=== PATIENT | female | born 1950 | race Caucasian/White ===

== ENCOUNTER → 2021-12-22 12:54 | Outpatient (CLI) | payer MEDICARE, SELFPAY ==
--- NOTE | ~2021-12-22 | MM_ITS ---
EXAMINATION: MM screening yuan BI w zeyad HISTORY: Screening mammogram TECHNIQUE: Craniocaudal and mediolateral oblique 3-D tomosynthesis images were obtained and synthetic 2-D images were generated. CAD analysis was submitted and interpreted. COMPARISON: No prior mammogram is available for comparison at this institution. BREAST PARENCHYMAL COMPOSITION: The breasts are almost entirely fatty. FINDINGS: Scattered bilateral benign calcifications. There is no evidence of suspicious mass, calcifi cation, or architectural distortion to suggest malignancy in either breast. IMPRESSION: 1. No mammographic evidence of malignancy. 2. Recommend routine screening mammography in one year. BI-RADS Category 2: Benign finding(s). Reviewed, dictated and finalized at location A.
--- NOTE | ~2021-12-22 | DEXA_ITS ---
Bone Density Report Name: ZACH MADSEN Age: 71 Sex: Female Ethnicity: White Date of : 1950 Indication: postmenopausal; screening for osteoporosis; height loss; prior fracture; Referring Provider: Leodan Marx Study: Bone densitometry was performed. Exam Date: December 22, 2021 Accession number: [id number] Bone Density: Region BMD T-score Z-score Classification AP Spine (L1-L4) 0.908 -1.3 0.9 Osteopenia Femoral Neck (Left) 0.609 -2.2 -0.3 Osteopenia Total Hip (Left) 0.829 -0.9 0.7 Normal Femoral Neck (Right) 0.611 -2.1 -0.2 Osteopenia Total Hip (Right) 0.794 -1.2 0.4 Osteopenia Total Hip Mean 0.812 -1.1 0.6 Osteopenia World Health Organization criteria for BMD impression classify patients as: Normal (T-score at or above -1.0), Osteopenia (T-score between -1.0 and -2.5), or Osteoporosis (T-score at or below -2.5). 10-year Fracture Risk(1): Major Osteoporotic Fracture 19% Hip Fracture 3.8% Reported Risk Factors: [place] (), Neck BMD=0.611, BMI=36.0, previous fracture (1) FRAX(R) Version 3.08. Fracture probability calculated for an untreated patient. Fracture probability may be lower if the patient has received treatment. Clinical Information Provided by Patient: Has had a low trauma fracture Has used the following medications: Vitamin D Patient maximum height was 68 Menopause Age: 65 No regular weight bearing exercise Does not regularly consume dairy products Drinks caffeinated beverages Onset of menses at age 12 Number of children 2 Impression: The patient has low bone mass, based on the Left Femoral Neck T-score. The patient has an estimated ten-year risk of hip fracture of 3.8% and an estimated ten-year risk of major fracture of 19%, based on the WHO FRAX algorithm. The patient has risk factors, including: previous fracture. Discussion: BONE DENSITY IS LOW AT ONE OR MORE SKELETAL SITES. THE PATIENT'S BMD AND CLINICAL RISK FACTORS CONTRIBUTE TO THIS PATIENT'S INCREASED RISK OF FRACTURE. This patient's lowest T-score is low at one or more skeletal sites. It meets the World Health Organization's (WHO) criteria for ?low bone mass? (T-score between -1.0 and -2.5). The patient's 10-year risk of hip fracture as calculated by FRAX exceeds the threshold where pharmacological therapy is recommended by the National Osteoporosis Foundation (NOF). However, all treatment decisions require clinical judgment and consideration of individual patient factors, including patient preferences, comorbidities, previous drug use, risk factors not captured in the FRAX model (e.g., frailty, falls, vitamin D deficiency, increased bone turnover, interval significant decline in bone density) and possible under or overestimation of fracture risk by FRAX. The patient should follow a healthful lifestyle (good
== END ==
PROVIDERS: PCP Internal Medicine; Visit Provider Obstetrics & Gynecology
DX: Z12.31 Encounter for screening mammogram for malignant neoplasm of breast (principal); Z78.0 Asymptomatic menopausal state; M85.88 Other specified disorders of bone density and structure, other site; M85.852 Other specified disorders of bone density and structure, left thigh; M85.851 Other specified disorders of bone density and structure, right thigh
CPT/HCPCS: 77063; 77067; 77080

== ENCOUNTER 2023-05-17 07:10 | Emergency (ER) | payer MEDICARE, SELFPAY ==
--- NOTE | ~2023-05-17 | CT_ITS ---
EXAMINATION: CT abdomen pelvis wo con DATE: 05/17/2023 10:33 INDICATION: Abdominal pain. Hematuria. TECHNIQUE: Computed tomography (CT) of the abdomen and pelvis was performed without intravenous contr ast. Automated exposure control and iterative reconstruction technique were employed. The dose-length product was 874.58 mGy-cm. COMPARISON: None. FINDINGS: The visualized portions of the lung bases demonstrate mild atelectasis. No pleural effusion . The heart size is normal. No pericardial effusion. The liver, gallbladder, spleen, pancreas, and ad renal glands are normal. There is mild right hydronephrosis. There is a 3 mm stone in proximal right ureter. There is a 2 mm stone in left kidney. There is mild aortic atherosclerosis. There is a left i nguinal hernia containing fat. There is diverticulosis of the colon without evidence of diverticuliti s. There are no dilated loops of bowel. The appendix is not visualized. There are no pathologically e nlarged lymph nodes. There is no free intraperitoneal fluid. There is moderate lumbar spondylosis. Th ere are bridging endplate osteophytes at multiple levels in the thoracic spine, consistent with diffu se idiopathic skeletal hyperostosis (DISH). IMPRESSION: 1. 3 mm stone in proximal right ureter with mild right hydronephrosis. 2. 2 mm nonobstructing left kidney stone. Reviewed, dictated and finalized at location A.
[2023-05-17 07:13] VITALS: BP 149/65; PULSE 56; RESP 18; TEMP 36.1; O2SAT 96
[2023-05-17 07:28] LABS: Basophils Percent Auto 0.1 % (0.2-1.2); Eosinophils Absolute Auto 0.3 K/mm3 (0-0.3); Hematocrit 44.2 % (37.0-47.0); Hemoglobin 14.2 g/dL (12.0-15.0); Immature Granulocyte Absolute 0.02 K/mm3 (0.00-0.031); Immature Granulocyte Percent A 0.2 % (0-0.5); Lymphocytes Absolute Auto 3.18 K/mm3 (0.9-3.2); Lymphocytes Percent Auto 38.2 % (18.3-44.2); Mean Corpuscular HGB Conc 32.1 g/dl (32-36); Mean Corpuscular Hemoglobin 31.1 pg (26-34); Mean Corpuscular Volume 96.9 fl (80-100); Monocytes Absolute Auto 0.8 K/mm3 (0.1-0.6); Monocytes Percent Auto 9.2 % (2.6-8.5); Neutrophils Absolute Auto 4.1 K/mm3 (1.3-6.7); Neutrophils Percent Auto 49.3 % (45.5-73.1); Platelet Count Result 339 k/mm3 (150-375); Red Blood Count 4.56 M/mm3 (4.2-5.4); Red Cell Distribution Width 12.3 % (11.5-14.5); White Blood Count 8.3 K/mm3 (4.5-10.0)
[2023-05-17 07:37] LABS: Alanine Aminotransferase 32 U/L (6-35); Albumin Level 4.2 g/dL (3.5-5.1); Alkaline Phosphatase 90 U/L (38-126); Anion Gap 8 mmol/L (8-16); Aspartate Amino Transferase 34 U/L (14-36); Bilirubin,Total 0.4 mg/dL (0.2-1.3); Blood Urea Nitrogen 17 mg/dL (7-17); Calcium 9.4 mg/dL (8.4-10.2); Carbon Dioxide 24 mmol/L (22-30); Chloride 106 mmol/L (98-107); Estimated CRCL calculation 79 ml/min; Estimated Glomerular Filt Rate > 60; Glucose 137 mg/dL (65-110); Lipase 96 U/L (23-300); Potassium 4.3 mmol/L (3.4-5.0); Sodium 138 mmol/L (137-145)
[2023-05-17 07:56] VITALS: BP 167/82; PULSE 60; RESP 16; TEMP 36.7; O2SAT 99
--- NOTE | 2023-05-17 08:06 | PC.NURSE ---
pt's son has walked into nursing station 2 times to report pt in pain and states my mom is in pain what are we waiting on. Informed pt ED is full and currently 1 ERP on staff. Son is agitated and states we came here because of her pain.
--- NOTE | 2023-05-17 08:12 | ED.ABDPAIN ---
HPI - Abdominal Pain General Chief Complaint: Abdominal Pain Stated Complaint: abd pain Time Seen by Provider: 05/17/23 08:06 History of Present Illness HPI narrative: 73-year-old female presented emergency department for evaluation of right flank and right lower quadrant pain that started approximately 530 this morning. Patient describes it as a sharp pain. Patient did have some associated nausea without vomiting. Patient denies any prior history of kidney stones. Related Data Allergies Allergy/AdvReac Type Severity Reaction Status Date / Time No Known Allergies Allergy Verified 05/17/23 08:03 Review of Systems Review of Systems: All systems reviewed & are unremarkable except as noted in HPI and below Exam Narrative: APPEARANCE: Well appearing, no pain, no distress, well-nourished. HEAD: normocephalic, atraumatic. EYES: PERRLA/EOMI, conjunctivae clear. NOSE: Normal no drainage EARS:TMS clear with good light reflex. THROAT: Pharynx clear, no exudate. NECK: Supple. No adenopathy, no masses. RESPIRATORY: Airway patent, respirations nonlabored. Clear to auscultation bilaterally, no rales, rhonchi, wheezing. CARDIOVASCULAR: Regular rate and rhythm without murmurs rubs or gallops. ABDOMINAL: Soft right lower quadrant tenderness and right CVA tenderness to palpation MUSCULOSKELETAL: Moves all extremities. Strength/ROM intact, No edema, No calf tenderness. NEURO: Alert. Cranial nerves II through XII intact. Grossly intact SKIN: Warm, dry. Normal Color Course Course Emergency Course: 73-year-old female presented ED for evaluation of right flank and right lower quadrant pain. Patient was in distress due to the pain upon arrival and was ordered medications for pain control, IV medications for nausea control and IV fluids. Patient is afebrile with no leukocytosis and a stable hemoglobin. Patient has kidney function at her baseline. UA did show evidence of hematuria and CT scan did show a 3 mm proximal right ureteral calculi. On reevaluation patient's pain is resolved. Patient was provided p.o. Flomax and p.o. [place], and p.o. Zofran for home. Patient and family were updated on the results of the work-up and plan for follow-up and on reasons to return to the emergency department. All questions concerns were addressed and patient was well-appearing at time of discharge. Vital Signs Vital signs: Vital Signs Temperature 97 F L 05/17/23 07:13 Pulse Rate 56 L 05/17/23 07:13 Respiratory Rate 18 05/17/23 07:13 Blood Pressure 149/65 H 05/17/23 07:13 Pulse Oximetry 96 05/17/23 07:13 Oxygen Delivery Room Air 05/17/23 07:13 Temperature 98.0 F 05/17/23 09:30 Pulse Rate 84 05/17/23 11:47 Respiratory Rate 16 05/17/23 11:47 Blood Pressure 131/62 05/17/23 11:47 Pulse Oximetry 97 05/17/23 11:47 Oxygen Delivery Room Air 05/17/23 07:13 MDM - Abdominal Pain Differential Diagnosis Differential diagnosis: Likely abdominal pain, acute appendicitis, calculus of kidney, constipation, diverticulitis, gastroenteritis, pancreatitis and small bowel obstruction Lab Data Attestation: I reviewed the patient's lab results. 05/17/23 07:22 05/17/23 07:22 Labs: Lab Results 05/17/23 05/17/23 Range/Units 07:22 09:11 WBC 8.3 (4.5-10.0) K/mm3 RBC 4.56 (4.2-5.4) M/mm3 Hgb 14.2 (12.0-15.0) g/dL Hct 44.2 (37.0-47.0) % MCV 96.9 (80-100) fl MCH 31.1 (26-34) pg MCHC 32.1 (32-36) g/dl RDW 12.3 (11.5-14.5) % Plt Count 339 (150-375) k/mm3 MPV 9.0 (7.4-10.4) fl Immature Gran % (Auto) 0.2 (0-0.5) % Neut % (Auto) 49.3 (45.5-73.1) % Lymph % (Auto) 38.2 (18.3-44.2) % [place] % (Auto) 9.2 H (2.6-8.5) % Eos % (Auto) 3.0 (0-4.4) % Baso % (Auto) 0.1 L (0.2-1.2) % Lymph # (Auto) 3.18 (0.9-3.2) K/mm3 [place] # (Auto) 0.8 H (0.1-0.6) K/mm3 Eos # (Auto) 0.3 (0-0.3) K/mm3 Baso # (Auto) 0.0 (0.0-0.1) K/mm3 Abs Immat Gr
[2023-05-17] MEDS: SODIUM CHLORIDE 0.9% IV 500 ML 999 ML IV CONT (08:16)
[2023-05-17] MEDS: ONDANSETRON INJ 4 MG/2 ML VIAL IV PUSH (08:17)
[2023-05-17] MEDS: HYDROmorphone HCL INJ (*CRX) 1 MG/ML SYR 0.5 MG IV PUSH (08:17)
[2023-05-17 08:30] VITALS: BP 136/71; PULSE 63; RESP 16; TEMP 36.7; O2SAT 98
[2023-05-17 09:30] VITALS: BP 130/64; PULSE 60; RESP 16; TEMP 36.7; O2SAT 96
[2023-05-17 09:43] LABS: Appearance Urine Clear (Clear); Bacteria Urine None Seen /hpf; Bilirubin Urine Negative (Negative); Blood Urine 3+ (Negative); Color Urine Yellow (Yellow); Glucose Urine UA Negative (Negative); Ketones Urine Negative (Negative); Leukocyte Esterase Ur 1+ LEU/UL (Negative); Need Manual Microscopic Reviewed; Nitrate Urine Negative (Negative); Protein Urine Trace mg/dL (Negative); RBC Urine >100 /hpf (0-2); Specific Grav Ur 1.017 (1.001-1.035); Squamous Epithelial Cell Urine Occasional /hpf (Few); Urobilinogen Urine 0.2 mg/dL (<2.0); pH Urine 7.5 (5.0-9.0)
[2023-05-17 09:47] LABS: Add Urine Microscopic? YES
[2023-05-17] MEDS: HYDROcodone/acetaminophen (*CRX) 5-325 MG TABLET 1 TAB PO (11:44)
[2023-05-17] MEDS: TAMSULOSIN HCL 0.4 MG CAPSULE PO (11:45)
[2023-05-17 11:47] VITALS: BP 131/62; PULSE 84; RESP 16; O2SAT 97
== END 2023-05-17 11:56 | disposition home or self-care (01) ==
PROVIDERS: Emergency Provider Emergency Medicine; PCP Internal Medicine
DX: N13.2 Hydronephrosis with renal and ureteral calculous obstruction (principal)
CPT/HCPCS: 36415; 74176; 80053; 81001; 83690; 85025; 87086; 96361; 96374; 96375; 99284; A9270; J1170; J2405; J7040

== ENCOUNTER 2023-05-25 15:44 | Outpatient (CLI) | payer MEDICARE, SELFPAY ==
--- NOTE | ~2023-05-25 | CT_ITS ---
EXAMINATION: CT abdomen pelvis wo con DATE: 05/25/2023 16:05 INDICATION: Left ureteral stone TECHNIQUE: Computed tomography (CT) of the abdomen and pelvis was performed without intravenous contr ast. Automated exposure control and iterative reconstruction technique were employed. Exam dose: 921 .79 mGy-cm total exam DLP. COMPARISON: 05/17/2023 CT abdomen pelvis FINDINGS: Minimal discoid atelectasis or scarring at the lung bases. No consolidation. No pericardial or pleural effusion. The liver, gallbladder, spleen, pancreas and bile ducts and pancreatic duct as well as the adrenal gl ands are unremarkable. Persistent 3 mm calculus in the proximal right ureter but with less right hydronephrosis since 023. Stable 2 mm nonobstructing left renal calculus. Normal caliber of the abdominal aorta. No intraperitoneal or retroperitoneal or pelvic mass lesion or adenopathy or ascites. The uterus and adnexal areas are unremarkable. Fat-containing left inguinal hernia. Very small fat-containing umbilical hernia. Diverticulosis of the colon; no CT evidence of diverticulitis. No bowel obstruction or intraperitonea l free air. Diffuse idiopathic skeletal hyperostosis of the thoracic spine. Moderate degenerative disc disease and minimal retrolisthesis at L5-S1. No suspicious osteolytic or osteoblastic lesions are noted. IMPRESSION: Proximal approximately 3 mm right ureteral calculus is unchanged in position since 2022, there is diminished right hydronephrosis 2 mm nonobstructing left renal calculus Colon diverticulosis Fat-containing left inguinal hernia and very small fat-containing umbilical hernia Reviewed, dictated and finalized at Location A. Reviewed, dictated and finalized at location A. IMPRESSION: Proximal approximately 3 mm right ureteral calculus is unchanged i n position since 05/17/2023, there is diminished right hydronephrosis 2 mm nonobstructing left renal calculus Colon diverticulosis Fat-containing left inguinal hernia and very small fat-containing umbilical her roxanne
--- NOTE | ~2023-05-25 | XR_ITS ---
XR abdomen/kub 1V DATE: 05/25/2023 16:14 INDICATION: Right ureteral stone. TECHNIQUE: 2 AP views of the abdomen COMPARISON: 05/17/2023 CT abdomen pelvis 05/25/2023 CT abdomen pelvis FINDINGS: Small calcified density overlies the right ureter at the L3 level. No other urinary tract calcification is noted. Moderately prominent amount fecal material in the rectum and colon. No bowel obstruction. The psoas s hadows are intact. No visceromegaly is evident. Diffuse idiopathic skeletal hyperostosis of the thoracic spine. The lung bases appear clear. IMPRESSION: Calcified right ureteral calculus at L3 level Reviewed, dictated and finalized at Location A. Reviewed, dictated and finalized at location A.
== END 2023-05-25 15:45 | disposition home or self-care (01) ==
PROVIDERS: PCP Internal Medicine; Visit Provider Nurse Practitioner Adult Health
DX: N20.2 Calculus of kidney with calculus of ureter (principal); K57.30 Diverticulosis of large intestine without perforation or abscess without bleeding; K40.90 Unilateral inguinal hernia, without obstruction or gangrene, not specified as recurrent; K42.9 Umbilical hernia without obstruction or gangrene
CPT/HCPCS: 74018; 74176

== ENCOUNTER 2023-07-07 10:41 | Outpatient (CLI) | payer MEDICARE, SELFPAY ==
--- NOTE | ~2023-07-07 | XR_ITS ---
XR abdomen/kub 1V 07/07/2023 11:02 INDICATION: Left ureteral stone TECHNIQUE: KUB COMPARISON: None FINDINGS: Bowel gas pattern is normal. There is no evidence of free air, mass, organomegaly, ascites or obstruction. There is a punctate right renal stone. There are left pelvic phleboliths. The bones appear intact. IMPRESSION: 1: Right nephrolithiasis.. Reviewed, dictated and finalized at location A. IMPRESSION: 1: Right nephrolithiasis..
== END 2023-07-07 10:42 | disposition home or self-care (01) ==
PROVIDERS: PCP Internal Medicine; Visit Provider Nurse Practitioner Adult Health
DX: N20.1 Calculus of ureter (principal)
CPT/HCPCS: 74018

== ENCOUNTER 2023-07-12 13:54 | Outpatient (CLI) | payer MEDICARE, SELFPAY ==
--- NOTE | ~2023-07-12 | XR_ITS ---
AP view of the pelvis and AP and lateral views of the right hip Clinical history: Pain Findings: No acute fracture or dislocation is seen. Osseous alignment is anatomic. Bilateral hip and SI joint spaces are preserved. Soft tissues are unremarkable. Impression: No significant abnormality is seen. Reviewed, dictated and finalized at [facility]. LICENSE OFFICER SUPERVISOR Impression: No significant abnormality is seen.
== END 2023-07-12 13:55 | disposition home or self-care (01) ==
PROVIDERS: PCP Internal Medicine; Visit Provider Internal Medicine
DX: M25.551 Pain in right hip (principal)
CPT/HCPCS: 73502

== ENCOUNTER 2023-08-06 16:25 | Inpatient (IN) | payer MEDICARE, SELFPAY ==
--- NOTE | ~2023-08-06 | CT_ITS ---
EXAMINATION: CT abdomen pelvis wo con DATE: 08/06/2023 18:56 INDICATION: Right groin pain TECHNIQUE: Computed tomography (CT) of the abdomen and pelvis was performed without intravenous contr ast. The dose-length product was 770.07 mGy-cm. Automated exposure control and iterative reconstructi on technique were employed. COMPARISON: CT dated 05/25/2023. FINDINGS: No significant pleural or pericardial effusion. Dependent atelectasis. Heart size normal. T here is atherosclerosis of the aorta without aneurysm. No lymphadenopathy. Small fat-containing left inguinal hernia. The liver, spleen, pancreas, adrenal glands are unremarkable. There is 2 mm nonobstructing left renal stone. There is a 4 mm right UVJ stone with right hydronephrosis and perinephric edema. Nonobstructi ve bowel gas pattern. Gallbladder is present. No free air or free fluid. IMPRESSION: 1. Obstructing 4 mm right UVJ stone with moderate hydronephrosis. 2: Nonobstructing left nephrolithiasis. Reviewed, dictated and finalized at location A. MANAGER
--- NOTE | ~2023-08-06 | XR_ITS ---
EXAMINATION: XR retrograde pyelo w/stent RT DATE: 08/07/2023 15:45 INDICATION: Right internal ureteral stent placement TECHNIQUE: Fluoroscopic images from a right internal ureteral stent placement are submitted for elias hernandez 15 seconds of fluoroscopy time. 6 fluoroscopic images FINDINGS: There is a right double-J internal ureteral stent projecting in expected position, with proximal [place] loop at the level of the renal pelvis and distal loop in the pelvis within the bladder lumen. IMPRESSION: 1. Right internal ureteral stent placement. Please refer to real-time procedural findings for brant aparicio. Reviewed, dictated and finalized at location A. CH MANAGER IMPRESSION: 1. Right internal ureteral stent placement. Please refer to real-time procedu ral findings for details.
--- NOTE | ~2023-08-06 | CT_ITS ---
EXAMINATION: CT abdomen pelvis wo con DATE: 08/07/2023 10:13 INDICATION: Stone at the right ureterovesicular junction. TECHNIQUE: Computed tomography (CT) of the abdomen and pelvis was performed without intravenous contr ast in the prone position at the referring physician's request. Automated exposure control and iterat katherine reconstruction technique were employed. The dose-length product was 1632.28 mGy-cm. COMPARISON: None FINDINGS: Mild discoid atelectasis at the lingula. Heart size is normal. No pericardial or pleural effusion. Li ines, gallbladder, spleen, pancreas and bilateral adrenal glands are normal. No interval change in pos ition of a 4 mm stone at the right ureterovesicular junction with decrease in now mild right hydroure teronephrosis. 1-2 mm nonobstructing stone in upper pole calyx of the left kidney with no left-sided ureteral stones or hydronephrosis. Bladder is normal. There are few diverticula along the descending colon without adjacent from trace stranding to suggest diverticulitis. No bowel obstruction. Bladder, uterus and bilateral adnexa are unremarkable. Small fat-containing left inguinal hernia. No free int raperitoneal gas or fluid. No pathologically enlarged abdominal or pelvic lymphadenopathy. Mild thora columbar spondylosis with bridging osteophytes at multiple levels consistent with diffuse idiopathic skeletal hyperostosis (DISH). IMPRESSION: 1. Bilateral nephrolithiasis with unchanged 4 mm stone at the right ureterovesicular junction but wit h decreased now mild hydroureteronephrosis. Reviewed, dictated and finalized at location A. [employer]K/TELE[employer] ENGINEER IMPRESSION: 1. Bilateral nephrolithiasis with unchanged 4 mm stone at the right ureterovesi cular junction but with decreased now mild hydroureteronephrosis.
[2023-08-06 16:30] VITALS: BP 159/76; PULSE 58; RESP 18; TEMP 36.8; O2SAT 96
--- NOTE | 2023-08-06 16:30 | PC.NURSE ---
pt LWBS, did not want to stay
[2023-08-06 16:46] LABS: Basophils Percent Auto 0.2 % (0.2-1.2); Eosinophils Absolute Auto 0.1 K/mm3 (0-0.3); Eosinophils Percent Auto 0.9 % (0-4.4); Hemoglobin 14.6 g/dL (12.0-15.0); Immature Granulocyte Absolute 0.05 K/mm3 (0.00-0.031); Immature Granulocyte Percent A 0.5 % (0-0.5); Lymphocytes Absolute Auto 2.35 K/mm3 (0.9-3.2); Lymphocytes Percent Auto 21.8 % (18.3-44.2); Mean Corpuscular HGB Conc 32.4 g/dl (32-36); Mean Corpuscular Hemoglobin 30.7 pg (26-34); Mean Corpuscular Volume 94.7 fl (80-100); Monocytes Absolute Auto 0.7 K/mm3 (0.1-0.6); Monocytes Percent Auto 6.7 % (2.6-8.5); Neutrophils Absolute Auto 7.5 K/mm3 (1.3-6.7); Neutrophils Percent Auto 69.9 % (45.5-73.1); Platelet Count Result 358 k/mm3 (150-375); Red Blood Count 4.75 M/mm3 (4.2-5.4); Red Cell Distribution Width 12.3 % (11.5-14.5); White Blood Count 10.8 K/mm3 (4.5-10.0)
[2023-08-06 16:57] LABS: Alanine Aminotransferase 26 U/L (6-35); Albumin Level 4.3 g/dL (3.5-5.1); Alkaline Phosphatase 107 U/L (38-126); Anion Gap 11 mmol/L (8-16); Aspartate Amino Transferase 31 U/L (14-36); Bilirubin,Total 0.6 mg/dL (0.2-1.3); Blood Urea Nitrogen 19 mg/dL (7-17); Calcium 10.1 mg/dL (8.4-10.2); Carbon Dioxide 22 mmol/L (22-30); Chloride 102 mmol/L (98-107); Estimated CRCL calculation 63 ml/min; Estimated Glomerular Filt Rate > 60; Glucose 157 mg/dL (65-110); Potassium 4.6 mmol/L (3.4-5.0); Sodium 135 mmol/L (137-145)
--- NOTE | 2023-08-06 18:15 | ED.FEMALEGU ---
HPI - Female Genitourinary General Chief complaint: Urogenital-Female Stated complaint: Kidney stone Time Seen by Provider: 08/06/23 17:58 Source: patient Mode of arrival: ambulatory Limitations: no limitations History of Present Illness HPI Narrative: This is a 73-year-old female with PMH HTN, HLD who presents to the ED with chief complaint of right lower abdominal pain beginning at 3:30 a.m. this afternoon. Reports that she was diagnosed with a kidney stone 6 weeks ago and feels that she never passed out. She has not had any problems again with this until today. reports taking oxycodone and Zofran relief of pain. Patient reports the pain is in the right lower abdomen and radiates into the groin. States it is hard to get a comfortable position. Denies fevers, chills, hematuria, chest pain, shortness of breath, flank pain. Related Data Home Medications Medication Instructions Recorded Confirmed Wellbutrin SR 200 mg PO DAILY 08/06/23 08/06/23 carvedilol 6.25 mg tablet 6.25 mg PO BID 08/06/23 08/06/23 desvenlafaxine succinate 50 mg 50 mg PO DAILY 08/06/23 08/06/23 tablet,extended release 24 hr (Pristiq) lisinopril 5 mg tablet 5 mg PO BID 08/06/23 08/06/23 Allergies Allergy/AdvReac Type Severity Reaction Status Date / Time No Known Allergies Allergy Verified 08/06/23 16:25 Review of Systems Review of Systems: All systems as dictated in [facility] Past Medical History Medical History (Updated 08/06/23 @ 23:15 by Karin Lamb DO) CHF (congestive heart failure) 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 She has 1 son at who was 50 years old. She is a lifelong nonsmoker and does not drink alcohol. She lives alone and does not have any patch. 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 Code status: Full code Surrogate decision maker: Son Smoking status: Never smoker Alcohol intake: never Substance use: never Lack of Transportation: No Lack of Food: Never True Current Housing: I Have Housing Concerned About Future Housing: No Difficulty Paying Gas/Electric Bills: No Difficulty Paying for Meds: No Currently Unemployed: No Education: Associate Degree Difficulty w/ Childcare or Family Care: No Spiritual care concerns: No Exam Narrative: GENERAL: Well-appearing, well-nourished, and in no acute distress. HEAD: Normocephalic, atraumatic. EYES: PERRLA and EOMI. ENT: Nares clear, no rhinorrhea or epistaxis. Mucous membranes moist. Oropharynx without tonsillar hypertrophy exudate or other lesions. NECK: Supple. No adenopathy or masses. CHEST: No respiratory distress. Clear to auscultation. No wheezes rales or rhonchi HEART: Regular rate and rhythm. No murmur heard. Normal peripheral pulses. ABDOMEN: mild right flank tenderness. negative left flank tenderness. Soft, otherwise nontender, nondistended, normal active bowel sounds. MSK: Normal range of motion. No edema. SKIN: Warm, dry, no rash. NEURO: Alert and oriented x3. No focal deficits. PSYCH: Normal mood and affect. Course Course Emergency Course: Consult 193: Spoke with Dr. Penaloza (Urology), recommends admission to medicine and he will see the patient as consult. Recommends continuing antibiotics. Vital Signs Vital signs: Vital Signs Temperature 98.3 F 08/06/23 16:30 Pulse Rate 58 L 08/06/23 16:30 Respiratory Rate 18
[2023-08-06] MEDS: MORPHINE SULFATE (*CRX) 4 MG/ML INJ IV PUSH (18:26)
[2023-08-06 18:57] LABS: Appearance Urine Cloudy (Clear); Bacteria Urine None Seen /hpf; Bilirubin Urine Negative (Negative); Blood Urine Negative (Negative); Color Urine Yellow (Yellow); Glucose Urine UA Negative (Negative); Ketones Urine 1+ mg/dL (Negative); Leukocyte Esterase Ur 3+ LEU/UL (Negative); Need Manual Microscopic Reviewed; Nitrate Urine Negative (Negative); Non Pathogenic Casts 0-2; Protein Urine 1+ mg/dL (Negative); Specific Grav Ur 1.021 (1.001-1.035); Squamous Epithelial Cell Urine Occasional /hpf (Few); WBC Urine >100 /hpf; pH Urine 8.5 (5.0-9.0)
[2023-08-06 18:58] LABS: Add Urine Microscopic? YES
[2023-08-06 19:10] VITALS: BP 144/82; PULSE 56; RESP 20; O2SAT 98
--- NOTE | 2023-08-06 20:58 | PC.NURSE ---
2055-REPORT TO AILEEN TOBIN ON 3 MED/SURG.
[2023-08-06 21:40] VITALS: BP 147/68; PULSE 79; RESP 18; TEMP 36.6; O2SAT 95
--- NOTE | 2023-08-06 21:41 | ADMGEN ---
This patient, Sheyla Galo, was admitted to [facility] Surg Room 314-02. Patient/family oriented to hospital policies and general routines including ID bracelet, bed and alarms, visiting hours, pain management, procedures, bathroom and other care routines, personal items, smoking policy, room service/diet, and visiting hours. Information on how to activate the Rapid Response Team has been discussed. Patient/Family are encouraged to report perceived risks to care and to ask questions if they do not understand what they are told or what they should do.
[2023-08-06] MEDS: SODIUM CHLORIDE 0.9% IV 1,000 ML 125 ML IV CONT (22:54)
--- NOTE | 2023-08-06 23:03 | PM.IMHP ---
H&P: HPI History of Present Illness Date/Time: 08/06/23 21:55 Chief Complaint: Kidney stone pain Narrative: 73-year-old female with a past medical history CHF, obesity and depression who presented to the ER with recurrent pain in her right lower abdomen due to kidney stones. Patient reports that she was diagnosed with her 1st kidney stone May 17, 2023. Her pain is in the right lower quadrant. The pain is colicky in nature in 9/10 intensity at its worst. She was sent home with 10 days of Flomax, Zofran and some [place]. Her pain improved. She followed up with Urology. However, she was straining her urine and does not think she ever passed a kidney stone. Then today she had recurrence of her pain. Pain was in the right lower quadrant and that seemed to radiate down her right back into her leg. Pain is now down to a 2/10 in intensity. His C is been occasionally having nausea when she has pain. She denies any dysuria, hematuria or changes in urinary frequency. Review of Systems Review of Systems: 12 systems were reviewed with pertinent positives and negatives per HPI. Except as documented in the HPI, all other systems were reviewed and are negative. She does snore. She has never had a sleep study. She reports her weight is been stable. She denies any lower extremity swelling or shortness of breath. 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 She has 1 son at who was 50 years old. She is a lifelong nonsmoker and does not drink alcohol. She lives alone and does not have any patch. 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 Code status: Full code Surrogate decision maker: Son Smoking status: Never smoker Alcohol intake: never Substance use: never Lack of Transportation: No Lack of Food: Never True Current Housing: I Have Housing Concerned About Future Housing: No Difficulty Paying Gas/Electric Bills: No Difficulty Paying for Meds: No Currently Unemployed: No Education: Associate Degree Difficulty w/ Childcare or Family Care: No Spiritual care concerns: No Meds Home Medications and Allergies Home Medications Medication Instructions Recorded Confirmed Type Wellbutrin SR 200 mg PO DAILY 08/06/23 08/06/23 History carvedilol 6.25 mg tablet 6.25 mg PO BID 08/06/23 08/06/23 History desvenlafaxine succinate 50 mg 50 mg PO DAILY 08/06/23 08/06/23 History tablet,extended release 24 hr (Pristiq) lisinopril 5 mg tablet 5 mg PO BID 08/06/23 08/06/23 History Allergies Allergy/AdvReac Type Severity Reaction Status Date / Time No Known Allergies Allergy Verified 08/06/23 16:25 Vital Signs Vital Signs - 24 hr 08/06/23 16:30 08/06/23 19:10 08/06/23 21:40 Temperature 98.3 F 98 F Pulse Rate 58 L 56 L 79 Respiratory Rate 18 20 18 Blood Pressure 159/76 H 144/82 H 147/68 H Pulse Oximetry 96 98 95 Oxygen Delivery Room Air H&P: Results Labs Labs: Laboratory Tests 08/06/23 16:41 08/06/23 16:38 08/06/23 08/06/23 08/06/23 16:38 16:41 17:52 WBC 10.8 H RBC 4.75 Hgb 14.6 Hct 45.0 MCV 94.7 MCH 30.7 MCHC 32.4 RDW 12.3 Plt Count 358 MPV 9.0 Immature Gran % (Auto) 0.5 Neut % (Auto) 69.9 Lymph % (Auto) 21.8 [place] % (Auto) 6.7
[2023-08-07] VITALS (9 sets, daily range): BP systolic 115–153; BP diastolic 59–65; PULSE 66–82; RESP 15–20; TEMP 36.1–36.4; O2SAT 94–99
[2023-08-07] MEDS: carvediloL 6.25 MG TABLET PO ×3 (02:37→21:06)
[2023-08-07] MEDS: SODIUM CHLORIDE 0.9% IV 1,000 ML 125 ML IV CONT ×3 (07:10→23:54)
--- NOTE | 2023-08-07 08:53 | WPDURCON ---
Assessment and Plan Assessment and plan (1) Calculus of distal right ureter: Code(s): N20.1 - Calculus of ureter Status: Acute Plan As she is not sure if she has passed the stone overnight, she elects for CT abdomen and pelvis, will plan for prone position. If stone present, she would like to proceed with treatment, given UA which is suspicious for infection, likely will stent with delayed URS/LL. Urology Consult Note HPI Date Seen: 08/07/23 Requesting Physician: Karin Lamb DO Primary Care Provider: Yvan Arredondo, Consult Narrative Narrative: Sheyla Galo is a 73 year old female who presents to ERwith right lower abdominal pain. Stone first noted in May, pain resolved but she did not note passage of stone. After admission, she reports improvement in her symptoms. She wonders if she has since passed her stone. Denies fevers or chills or other symptoms of systemic infection. Review of Systems Constitutional: Constitutional: Reports no additional constitutional complaints Eyes: Eyes: Reports no additional eye complaints ENT: Reports system reviewed and no additional complaints, except as documented Cardiovascular: Cardiovascular: Reports no additional cardiovascular complaints Respiratory: Respiratory: Reports no additional respiratory complaints Gastrointestinal: Gastrointestinal: Reports no additional gastrointestinal complaints Genitourinary: Genitourinary: Reports flank pain Musculoskeletal: Musculoskeletal: Reports no additional musculoskeletal complaints Integumentary/Breasts: Skin/Breast: Reports system reviewed and no additional complaints, except as docu Neurologic: Reports system reviewed and no additional complaints, except as documented Psychiatric: Psychiatric: Reports no additional psychiatric complaints [facility] Past Medical History Medical History (Updated 08/06/23 @ 23:15 by Karin Lamb DO) CHF (congestive heart failure) 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 She has 1 son at who was 50 years old. She is a lifelong nonsmoker and does not drink alcohol. She lives alone and does not have any patch. 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 Code status: Full code Surrogate decision maker: Son Smoking status: Never smoker Alcohol intake: never Substance use: never Lack of Transportation: No Lack of Food: Never True Current Housing: I Have Housing Concerned About Future Housing: No Difficulty Paying Gas/Electric Bills: No Difficulty Paying for Meds: No Currently Unemployed: No Education: Associate Degree Difficulty w/ Childcare or Family Care: No Spiritual care concerns: No Meds Home Medications and Allergies Home Medications Medication Instructions Recorded Confirmed Type Wellbutrin SR 200 mg PO DAILY 08/06/23 08/06/23 History carvedilol 6.25 mg tablet 6.25 mg PO BID 08/06/23 08/06/23 History desvenlafaxine succinate 50 mg 50 mg PO DAILY 08/06/23 08/06/23 History tablet,extended release 24 hr (Pristiq) lisinopril 5 mg tablet 5 mg PO BID 08/06/23 08/06/23 History Allergies Allergy/AdvReac Type Severity Reaction Status Date / Time No Known Allergies Allergy Verified 08/06/23 16:25 Vital Signs Vital Signs - 24 hr 08/06/23 16:30 08/06/23 19:10 08/06/23 21:40 Temperature 98.3 F 98 F Pulse Rate 58 L 56 L 79 Respiratory Rate 18 20 18
[2023-08-07] MEDS: lisinopriL 10 MG TABLET PO (09:20)
[2023-08-07] MEDS: DESVENLAFAXINE SUCCINATE 50 MG TAB.ER.24H PO (09:20)
[2023-08-07] MEDS: buPROPion HCL SR (12HR) 100 MG TABCR 200 MG PO (09:20)
--- NOTE | 2023-08-07 11:25 | PM.IMPN ---
Progress Note: A&P Assessment and Plan (1) Calculus of distal right ureter: Code(s): N20.1 - Calculus of ureter Status: Acute Assessment and Plan: Patient has obstructing right ureteral stone at the UVJ with moderate hydronephrosis. Urine appears suspicious for UTI but patient is asymptomatic. Patient does not have any significant leukocytosis and is afebrile. Renal function is preserved. Given patient is having persistent symptoms despite length the time from initial diagnosis in May urology has been consulted. Urine cultures pending. (2) Urinary tract infection: Qualifiers: Hematuria presence: with hematuria Urinary tract infection type: site unspecified Qualified Code(s): N39.0 - Urinary tract infection, site not specified; R31.9 - Hematuria, unspecified Code(s): N39.0 - Urinary tract infection, site not specified Status: Acute Assessment and Plan: Rocephin initiated 08/06 Follow-up urine culture See above (3) CHF (congestive heart failure): Qualifiers: Heart failure chronicity: chronic Heart failure type: unspecified Qualified Code(s): I50.9 - Heart failure, unspecified Code(s): I50.9 - Heart failure, unspecified Status: Acute Assessment and Plan: Patient is asymptomatic from a cardiac perspective. Rule resume patient's home cardiac medications after procedure. Patient's blood pressures are stable. Patient appears euvolemic. (4) Obesity (BMI 30-39.9): Code(s): E66.9 - Obesity, unspecified Status: Acute Assessment and Plan: Given the patient's obesity and crowded posterior oropharynx as well as cardiac history she would benefit from outpatient polysomnogram to rule out obstructive sleep apnea. Plan DVT prophylaxis with SCDs GI prophylaxis not indicated Code status full code Subjective Date/time seen: 08/07/23 11:25 Interval history: 73-year-old female with a past medical history CHF, obesity and depression who presented to the ER with recurrent pain in her right lower abdomen due to kidney stones. No overnight events noted. No chest pain or shortness of breath. No nausea, vomiting or diarrhea. No fevers or chills. Review of Systems Review of Systems: 12 point review of systems was assessed and was negative except as noted in the HPI Exam Narrative: General: No acute distress, alert and oriented per baseline HEENT: Atraumatic, normocephalic, mucous membranes moist CV: Regular rate and rhythm, S1, S2 Lungs: Clear to auscultation bilaterally, no rales or crackles noted, no wheezes, good air entry Abdomen: Soft, nontender, nondistended Extremities: Normal to inspection Skin: No rashes noted, no lesions or wounds seen Psych: Euthymic, normal affect Objective Data Vital Signs Vital Signs: Vital Signs - 24 hr 08/06/23 16:30 08/06/23 19:10 08/06/23 21:40 Temperature 98.3 F 98 F Pulse Rate 58 L 56 L 79 Respiratory Rate 18 20 18 Blood Pressure 159/76 H 144/82 H 147/68 H Pulse Oximetry 96 98 95 Oxygen Delivery Room Air 08/07/23 02:37 08/07/23 06:00 08/07/23 09:27 Temperature 97.5 F L Pulse Rate 78 68 82 Respiratory Rate 18 Blood Pressure 138/59 L Pulse Oximetry 97 Oxygen Delivery Intake/Output Intake/Output: Intake & Output 08/04/23 08/05/23 08/06/23 08/07/23 23:59 23:59 23:59 23:59 Intake Total 50 1175 Output Total 200 Balance 50 975 Meds/Results Medications: Active Medications Generic Name Dose Route Start Last Admin Trade Name Mosheq PRN Reason Stop Dose Admin Bupropion HCl 200 mg 08/07/23 09:00 08/07/23 09:20 Bupropion Hcl Sr (12hr) 100 Mg Tabcr PO 200 mg DAILY LINDA Administration Carvedilol 6.25 mg 08/06/23 23:30 08/07/23 09:27 Carvedilol 6.25 Mg Tablet PO 6.25 mg Q12HR LINDA Administration Desvenlafaxine Succinate 50 mg 08/07/23 09:00 08/07/23 09:20 Desvenlafaxine Succinat
--- NOTE | 2023-08-07 15:26 | WPDANESEPPF ---
Anes - Initial Pre Proc Eval Procedure: Operation Date: 08/07/23 14:30 Proposed Procedures p Cysto, RPG, Stone Ext, Stent Placement(Right) - Tru Penaloza MD Date/Time: 08/07/23 15:26 Surgeon: Karin Lamb DO Pre Op Diagnosis: Right ureteral stone, UTI Patient Data Age: 73 Gender: F Height: 1.73 m Weight: 108.6 kg Last Vital Signs Temp 36.4 C L 08/07/23 06:00 Pulse 82 08/07/23 09:27 Resp 18 08/07/23 06:00 BP 138/59 L 08/07/23 06:00 Pulse Ox 97 08/07/23 06:00 O2 Del Method Room Air 08/06/23 16:30 Allergies Allergy/AdvReac Type Severity Reaction Status Date / Time No Known Allergies Allergy Verified 08/06/23 16:25 Home Medications Medication Instructions Recorded Confirmed Type Wellbutrin SR 200 mg PO DAILY 08/06/23 08/06/23 History carvedilol 6.25 mg tablet 6.25 mg PO BID 08/06/23 08/06/23 History desvenlafaxine succinate 50 mg 50 mg PO DAILY 08/06/23 08/06/23 History tablet,extended release 24 hr (Pristiq) lisinopril 5 mg tablet 5 mg PO BID 08/06/23 08/06/23 History Laboratory Tests 08/06/23 08/06/23 08/06/23 16:38 16:41 17:52 WBC 10.8 H K/mm3 (4.5-10.0) RBC 4.75 M/mm3 (4.2-5.4) Hgb 14.6 g/dL (12.0-15.0) Hct 45.0 % (37.0-47.0) MCV 94.7 fl (80-100) MCH 30.7 pg (26-34) MCHC 32.4 g/dl (32-36) RDW 12.3 % (11.5-14.5) Plt Count 358 k/mm3 (150-375) MPV 9.0 fl (7.4-10.4) Immature Gran % (Auto) 0.5 % (0-0.5) Neut % (Auto) 69.9 % (45.5-73.1) Lymph % (Auto) 21.8 % (18.3-44.2) Terrell % (Auto) 6.7 % (2.6-8.5) Eos % (Auto) 0.9 % (0-4.4) Baso % (Auto) 0.2 % (0.2-1.2) Lymph # (Auto) 2.35 K/mm3 (0.9-3.2) Terrell # (Auto) 0.7 H K/mm3 (0.1-0.6) Eos # (Auto) 0.1 K/mm3 (0-0.3) Baso # (Auto) 0.0 K/mm3 (0.0-0.1) Abs Immat Gran (auto) 0.05 H K/mm3 (0.00-0.031) Absolute Neuts (auto) 7.5 H K/mm3 (1.3-6.7) Absolute Nucleated RBC 0.0 K/mm3 (0.0-0.012) Nucleated RBC % 0.0 % (0.0-0.2) Sodium 135 L mmol/L (137-145) Potassium 4.6 mmol/L (3.4-5.0) Chloride 102 mmol/L (98-107) Carbon Dioxide 22 mmol/L (22-30) Anion Gap 11 mmol/L (8-16) BUN 19 H mg/dL (7-17) Creatinine 0.90 mg/dL (0.7-1.0) Estim Creat Clear Calc 63 ml/min Estimated GFR > 60 (59 - ) Glucose 157 H mg/dL (65-110) Calcium 10.1 mg/dL (8.4-10.2) Total Bilirubin 0.6 mg/dL (0.2-1.3) AST 31 U/L (14-36) ALT 26 U/L (6-35) Alkaline Phosphatase 107 U/L (38-126) Total Protein 8.0 g/dL (6.3-8.2) Albumin 4.3 g/dL (3.5-5.1) Urine Color Yellow (Yellow) Urine Appearance Cloudy H (Clear) Urine pH 8.5 (5.0-9.0) Ur Specific Kirk 1.021 (1.001-1.035) Urine Protein 1+ H mg/dL (Negative) Urine Glucose (UA) Negative mg/dL (Negative) Urine Ketones 1+ H mg/dL (Negative) Ur Blood (Man) Negative (Negative) Urine Nitrate Negative (Negative) Urine Bilirubin Negative (Negative) Urine Urobilinogen 1.0 mg/dL (<2.0) Add Ur Microanalysis Reviewed Leukocyte Esterase Rfl 3+ H ANCELMO/UL (Negative) Urine RBC 11-20 H /hpf (0-2) Urine WBC >100 H /hpf Ur Squamous Epith Cells Occasional /hpf (Few) Urine Bacteria None seen /hpf Urine Casts 0-2 Patient hx anesthesia problems: none Family hx anesthesia problems: none Results Review: All pre-operative results and documents have been reviewed as part of the pre-operative evaluation. PMFSH Past Medical History Me
--- NOTE | 2023-08-07 15:31 | ECG_ITS ---
Measurements Intervals [place] Rate: 70 P: 65 MN: 192 QRS: -22 QRSD: 152 T: 142 QT: 439 QTc: 476 Interpretive Statements SINUS RHYTHM LEFT BUNDLE BRANCH BLOCK [120+ ms QRS DURATION, 80+ ms Q/S IN V1/V2, 85+ ms R IN I/aVL/V5/V6] ABNORMAL ECG NO PREVIOUS ECG AVAILABLE FOR COMPARISON Electronically Signed On 08-08-2023 13:05:18 SOFTWARE ENGINEERING ASSOCIATE MANAGER by Yasmani Mcallister M.D.
--- NOTE | 2023-08-07 15:40 | W.PM.PROC2 ---
Procedure Note - Detailed Date of Procedure 08/07/23 Pre-op Diagnosis Right ureteral stone, UTI Post-op Diagnosis Same Procedure Performed 1. Cystoscopy and right ureteral stent placement. 2. Right retrograde pyelogram 3. Fluroscopy with interpretation of images, less than 1 hour. Surgeon Tru Penaloza MD Anesthesia General Indications Ms. Galo is a very pleasant 73 year old woman who was diagnoed with a right ureteral stone in May. She was unsure of whether or not she passed it until the other day when she developed significant right flank pain, presented to the ER for evaluation and was found to have persistence of the stone yesterday evening. This morning, when I evaluated her, she was concerned she may have passed the stone, so she underwent CT in the prone position which demonstrated that the stone was still present. After a discussion of options (continued MET, ureteroscopy with laser lithotripsy and stent placement, and stent placement alone) she elected for cystoscopy and right ureteral stent placement given questionable urinalysis. Findings 1. No bladder masses, lesions or stones. 2. Orthotopic ureteral orifices. 3. Right retrograde pyelogram with minimal hydronephrosis, no obvious filling defects. 4. Appropriate placement of a 6F variable length ureteral stent. Description of Procedure After a discussion of risks and benefits, the patient offered informed written consent. She was taken to the operating room and anesthesia induced. She was transferred to the dorsal lithotomy position and prepped and draped in the standard sterile fashion. A call to order was made. The cystoscope was placed atraumatically and pancysto revealed the aforementioned findings. The right ureteral orifice was approached and a wire advanced into the right ureter to the renal pelvis. A 5F open-ended ureteral catheter was placed and the wire removed, a retrograde pyelogram was performed with aforementioned findings. The wire was replaced and the stent was placed without issue forming a curl in the renal pelvis and bladder. The bladder was drained and the cystoscope removed atraumatically. She was awoken from anesthesia having suffered no apparent complication. Implants 6F right ureteral stent Estimated Blood Loss 2 Urine Output 200 Condition Stable Disposition Floor
[2023-08-07] MEDS: LACTATED RINGERS 1,000 ML 30 ML IV CONT (15:46)
--- NOTE | 2023-08-07 19:55 | WPDPN ---
Subjective Date/time seen: 08/07/23 19:55 Interval history: Anesthesia notes Bundle Branch Block, no previous EKGs to compare, they recommend outpatient management with PCP. Objective Data Vital Signs Vital Signs: Vital Signs - 24 hr 08/06/23 21:40 08/07/23 02:37 08/07/23 06:00 Temperature 98 F 97.5 F L Pulse Rate 79 78 68 Respiratory Rate 18 18 Blood Pressure 147/68 H 138/59 L Pulse Oximetry 95 97 Oxygen Delivery Oxygen Flow Rate 08/07/23 09:27 08/07/23 15:46 08/07/23 16:00 Temperature 97.4 F L Pulse Rate 82 66 68 Respiratory Rate 15 17 Blood Pressure 138/60 130/65 Pulse Oximetry 99 99 Oxygen Delivery Simple Face Mask Simple Face Mask Oxygen Flow Rate 6 6 08/07/23 16:15 08/07/23 16:29 Temperature Pulse Rate 68 69 Respiratory Rate 17 17 Blood Pressure 120/65 115/63 Pulse Oximetry 96 96 Oxygen Delivery Room Air Room Air Oxygen Flow Rate Intake/Output Intake/Output: Intake & Output 08/04/23 08/05/23 08/06/23 08/07/23 23:59 23:59 23:59 23:59 Intake Total 50 2685 Output Total 400 Balance 50 2285 Meds/Results Medications: Active Medications Generic Name Dose Route Start Last Admin Trade Name Freq PRN Reason Stop Dose Admin Artificial Tears 1 drop 08/07/23 14:06 Artificial Tears Ophth Soln 15 Ml Bottle EACH EYE QID PRN Dry Eye(s) Bupropion HCl 200 mg 08/07/23 09:00 08/07/23 09:20 Bupropion Hcl Sr (12hr) 100 Mg Tabcr PO 200 mg DAILY LINDA Administration Carvedilol 6.25 mg 08/06/23 23:30 08/07/23 09:27 Carvedilol 6.25 Mg Tablet PO 6.25 mg Q12HR LINDA Administration Desvenlafaxine Succinate 50 mg 08/07/23 09:00 08/07/23 09:20 Desvenlafaxine Succinate 50 Mg Tab.Er.24h PO 50 mg QAM LINDA Administration Fentanyl Citrate 25 mcg 08/07/23 14:46 Fentanyl Citrate Inj (*Crx) 100 Mcg/2 Ml Vial IV PUSH Q2M PRN Pain Ceftriaxone Sodium 1 gm in 50 mls @ 100 mls/hr 08/07/23 20:00 Rocephin 1 Gm/Ns 50 Ml IVPB Q24H LINDA Sodium Chloride 1,000 mls @ 125 mls/hr 08/06/23 20:10 08/07/23 18:36 Normal Saline Iv IV CONT 125 mls/hr .Q8H LINDA Administration Lactated Ringer's 1,000 mls @ 30 mls/hr 08/07/23 14:50 08/07/23 16:31 Lr - Lactated Ringers Iv IV CONT Infused .Q24H LINDA Infusion Lisinopril 10 mg 08/07/23 09:00 08/07/23 09:20 Lisinopril 10 Mg Tablet PO 10 mg QAM LINDA Administration Morphine Sulfate 4 mg 08/06/23 20:08 Morphine Sulfate (*Crx) 4 Mg/Ml Inj IV PUSH Q4H PRN Pain Rated 7-10 Ondansetron HCl 4 mg 08/06/23 20:08 Ondansetron Inj 4 Mg/2 Ml Vial IV PUSH Q4H PRN Nausea Ondansetron HCl 4 mg 08/07/23 14:46 Ondansetron Inj 4 Mg/2 Ml Vial IV PUSH ONCE PRN Nausea Radiology Results: ITS Impressions Abdomen/Pelvis CT 08/07/23 10:44 IMPRESSION: 1. Bilateral nephrolithiasis with unchanged 4 mm stone at the right ureterovesicular junction but with decreased now mild hydroureteronephrosis. Retrograde Pyelogram 08/07/23 15:52 IMPRESSION: 1. Right internal ureteral stent placement. Please refer to real-time procedural findings for details.
--- NOTE | 2023-08-07 20:27 | PC.NURSE ---
Patient requesting pain meds less strong than morphine. Spoke with Dr. Lamb. New orders received for tylenol 650 mg PO Q4H prn and tramadol 50 mg PO Q4H prn.
[2023-08-07] MEDS: traMADol HCL (*CRX) 50 MG TABLET PO (21:05)
[2023-08-08 04:54] VITALS: BP 140/54; PULSE 59; RESP 18; TEMP 37; O2SAT 96
[2023-08-08 06:58] LABS: Basophils Percent Auto 0.1 % (0.2-1.2); Immature Granulocyte Absolute 0.06 K/mm3 (0.00-0.031); Immature Granulocyte Percent A 0.6 % (0-0.5); Lymphocytes Percent Auto 19.1 % (18.3-44.2); Mean Corpuscular HGB Conc 32.6 g/dl (32-36); Mean Corpuscular Volume 95.1 fl (80-100); Mean Platelet Volume 9.2 fl (7.4-10.4); Monocytes Absolute Auto 0.5 K/mm3 (0.1-0.6); Monocytes Percent Auto 5.1 % (2.6-8.5); Neutrophils Absolute Auto 7.1 K/mm3 (1.3-6.7); Neutrophils Percent Auto 75.1 % (45.5-73.1); Platelet Count Result 312 k/mm3 (150-375); Red Blood Count 4.52 M/mm3 (4.2-5.4); Red Cell Distribution Width 12.1 % (11.5-14.5); White Blood Count 9.4 K/mm3 (4.5-10.0)
[2023-08-08 07:12] LABS: Alanine Aminotransferase 26 U/L (6-35); Albumin Level 4.3 g/dL (3.5-5.1); Alkaline Phosphatase 101 U/L (38-126); Anion Gap 9 mmol/L (8-16); Aspartate Amino Transferase 33 U/L (14-36); Bilirubin,Total 0.5 mg/dL (0.2-1.3); Blood Urea Nitrogen 15 mg/dL (7-17); Calcium 9.4 mg/dL (8.4-10.2); Carbon Dioxide 24 mmol/L (22-30); Chloride 106 mmol/L (98-107); Estimated CRCL calculation 80 ml/min; Estimated Glomerular Filt Rate > 60; Glucose 101 mg/dL (65-110); Sodium 139 mmol/L (137-145)
[2023-08-08] MEDS: SODIUM CHLORIDE 0.9% IV 1,000 ML 125 ML IV CONT (08:43)
[2023-08-08 08:44] VITALS: PULSE 59
[2023-08-08] MEDS: DESVENLAFAXINE SUCCINATE 50 MG TAB.ER.24H PO (08:44)
[2023-08-08] MEDS: buPROPion HCL SR (12HR) 100 MG TABCR 200 MG PO (08:44)
[2023-08-08] MEDS: lisinopriL 10 MG TABLET PO (08:44)
[2023-08-08] MEDS: carvediloL 6.25 MG TABLET PO (08:44)
--- NOTE | 2023-08-08 11:43 | WPDUROPN2 ---
Progress Note: A&P Assessment and Plan (1) Calculus of distal right ureter: Code(s): N20.1 - Calculus of ureter Status: Acute Assessment and Plan: Urine cultures negative. Okay to discharge home. Urology will call to arrange outpatient management of her stone and stent Subjective Subjective Date/Time Seen: 08/08/23 11:43 Interval history: Feels well today. Pain is controlled. Urine culture shows only mixed urogenital growth Exam Narrative: No acute distress Normal breathing Alert orient x3 Objective Data Vital Signs Vital Signs: Vital Signs - 24 hr 08/07/23 15:46 08/07/23 16:00 08/07/23 16:15 Temperature 97.4 F L Pulse Rate 66 68 68 Respiratory Rate 15 17 17 Blood Pressure 138/60 130/65 120/65 Pulse Oximetry 99 99 96 Oxygen Delivery Simple Face Mask Simple Face Mask Room Air Oxygen Flow Rate 6 6 08/07/23 16:29 08/07/23 21:17 08/07/23 20:00 Temperature 96.9 F L Pulse Rate 69 71 Respiratory Rate 17 20 Blood Pressure 115/63 153/61 H Pulse Oximetry 96 94 94 Oxygen Delivery Room Air Room Air Oxygen Flow Rate 08/08/23 04:54 08/08/23 08:44 Temperature 98.6 F Pulse Rate 59 L 59 L Respiratory Rate 18 Blood Pressure 140/54 L Pulse Oximetry 96 Oxygen Delivery Oxygen Flow Rate Intake/Output Intake/Output: Intake & Output 08/05/23 08/06/23 08/07/23 08/08/23 23:59 23:59 23:59 23:59 Intake Total 50 3735 1960 Output Total 600 750 Balance 50 9565 1210 Meds/Results Medications: Active Medications Generic Name Dose Route Start Last Admin Trade Name Freq PRN Reason Stop Dose Admin Acetaminophen 650 mg 08/07/23 20:25 Acetaminophen 325 Mg Tablet PO Q4H PRN pain Artificial Tears 1 drop 08/07/23 14:06 Artificial Tears Ophth Soln 15 Ml Bottle EACH EYE QID PRN Dry Eye(s) Bupropion HCl 200 mg 08/07/23 09:00 08/08/23 08:44 Bupropion Hcl Sr (12hr) 100 Mg Tabcr PO 200 mg DAILY LINDA Administration Carvedilol 6.25 mg 08/06/23 23:30 08/08/23 08:44 Carvedilol 6.25 Mg Tablet PO 6.25 mg Q12HR LINDA Administration Desvenlafaxine Succinate 50 mg 08/07/23 09:00 08/08/23 08:44 Desvenlafaxine Succinate 50 Mg Tab.Er.24h PO 50 mg QAM LINDA Administration Fentanyl Citrate 25 mcg 08/07/23 14:46 Fentanyl Citrate Inj (*Crx) 100 Mcg/2 Ml Vial IV PUSH Q2M PRN Pain Ceftriaxone Sodium 1 gm in 50 mls @ 100 mls/hr 08/07/23 20:00 08/07/23 21:37 Rocephin 1 Gm/Ns 50 Ml IVPB Infused Q24H LINDA Infusion Sodium Chloride 1,000 mls @ 125 mls/hr 08/06/23 20:10 08/08/23 08:43 Normal Saline Iv IV CONT 125 mls/hr .Q8H LINDA Administration Lactated Ringer's 1,000 mls @ 30 mls/hr 08/07/23 14:50 08/07/23 16:31 Lr - Lactated Ringers Iv IV CONT Infused .Q24H LINDA Infusion Lisinopril 10 mg 08/07/23 09:00 08/08/23 08:44 Lisinopril 10 Mg Tablet PO 10 mg QAM LINDA Administration Ondansetron HCl 4 mg 08/06/23 20:08 Ondansetron Inj 4 Mg/2 Ml Vial IV PUSH Q4H PRN Nausea Ondansetron HCl 4 mg 08/07/23 14:46 Ondansetron Inj 4 Mg/2 Ml Vial IV PUSH ONCE PRN Nausea Tramadol HCl 50 mg 08/07/23 20:26 08/07/23 21:05 Tramadol Hcl (*Crx) 50 Mg Tablet PO 50 mg Q4H PRN Administration Pain Radiology Results: ITS Impressions Abdomen/Pelvis CT 08/07/23 10:44 IMPRESSION: 1. Bilateral nephrolithiasis with unchanged 4 mm stone at the right ureterovesicular junction but with decreased now mild hydroureteronephrosis. Retrograde Pyelogram 08/07/23 15:52 IMPRESSION: 1. Right internal ureteral stent placement. Please refer to real-time procedural findings for details. Labs Labs: Laboratory Results - last 24 hr 08/08/23 06:21 WBC 9.4 RBC 4.52 Hgb 14.0 Hct 43.0 MCV 95.1 MCH 31.0 MCHC 32.6 RDW 12.1 Plt Count 312 MPV 9.2 Immature Gran % (Auto) 0.6 H Neut % (Auto) 75.1 H Lymph % (Aut
--- NOTE | 2023-08-08 12:27 | PM.DS ---
DS: Admitting Diagnosis Discharge Date 08/08/23 Admitting Diagnosis abdominal and flank pain DS: Discharge Diagnosis Discharge Diagnosis (1) Calculus of distal right ureter: Code(s): N20.1 - Calculus of ureter Status: Acute Assessment and Plan: Patient has obstructing right ureteral stone at the UVJ with moderate hydronephrosis. Urine appears suspicious for UTI but patient is asymptomatic. Patient does not have any significant leukocytosis and is afebrile. Renal function is preserved. Given patient is having persistent symptoms despite length the time from initial diagnosis in May urology has been consulted. Urine cultures pending. (2) Urinary tract infection: Qualifiers: Hematuria presence: with hematuria Urinary tract infection type: site unspecified Qualified Code(s): N39.0 - Urinary tract infection, site not specified; R31.9 - Hematuria, unspecified Code(s): N39.0 - Urinary tract infection, site not specified Status: Acute Assessment and Plan: Rocephin initiated 08/06 Follow-up urine culture See above (3) CHF (congestive heart failure): Qualifiers: Heart failure type: unspecified Heart failure chronicity: chronic Qualified Code(s): I50.9 - Heart failure, unspecified Code(s): I50.9 - Heart failure, unspecified Status: Chronic Assessment and Plan: Patient is asymptomatic from a cardiac perspective. Rule resume patient's home cardiac medications after procedure. Patient's blood pressures are stable. Patient appears euvolemic. (4) Obesity (BMI 30-39.9): Code(s): E66.9 - Obesity, unspecified Status: Acute Assessment and Plan: Given the patient's obesity and crowded posterior oropharynx as well as cardiac history she would benefit from outpatient polysomnogram to rule out obstructive sleep apnea. Plan DVT prophylaxis with SCDs GI prophylaxis not indicated Code status full code DS: Summary Hospital Course Hospital Course: 73-year-old female with a past medical history CHF, obesity and depression who presented to the ER with recurrent pain in her right lower abdomen due to kidney stones. Patient has obstructing right ureteral stone at the UVJ with moderate hydronephrosis.? Urine appears suspicious for UTI but patient is asymptomatic.? Patient does not have any significant leukocytosis and is afebrile.? Renal function is preserved.? Given patient is having persistent symptoms despite length the time from initial diagnosis in May urology has been consulted. Urine culture came back negative for infection. 08/07: 1. Cystoscopy and right ureteral stent placement. 2. Right retrograde pyelogram Patient was discharged in stable condition with close outpatient follow-up. Please see above and [facility] rec for details. Time Spent with Patient Time attestation: Total time spent providing and/or coordinating discharge services: Exam Narrative: General: No acute distress, alert and oriented per baseline HEENT: Atraumatic, normocephalic, mucous membranes moist CV: Regular rate and rhythm, S1, S2 Lungs: Clear to auscultation bilaterally, no rales or crackles noted, no wheezes, good air entry Abdomen: Soft, nontender, nondistended Extremities: Normal to inspection Skin: No rashes noted, no lesions or wounds seen Psych: Euthymic, normal affect DS: Data Data Completed and Pending Labs on day of discharge: Labs from last 24 hours 08/08/23 06:21 WBC 9.4 RBC 4.52 Hgb 14.0 Hct 43.0 MCV 95.1 MCH 31.0 MCHC 32.6 RDW 12.1 Plt Count 312 MPV 9.2 Immature Gran % (Auto) 0.6 H Neut % (Auto) 75.1 H Lymph % (Auto) 19.1 [place] % (Auto) 5.1 Eos % (Auto) 0.0 Baso % (Auto) 0.1 L Lymph # (Auto) 1.80 [place] # (Auto) 0.5 Eos # (Auto) 0.0 Baso # (Auto) 0.0 Abs Immat Gran (auto) 0.06 H Absolute Neuts (auto) 7.1 H Absolute Nucleated RBC 0.0 Nucleated RBC % 0.0 Sodium 1
--- NOTE | 2023-08-10 15:23 | WPDHPUPDATE1 ---
History and Physical Update Update Date/Time: 08/07/23 15:23 History and Physical has been reviewed, including an updated exam of the patient. There are NO changes in the patient's condition. Risks, benefits, and alternatives have been discussed and questions answered. Patient agrees to proceed with procedure.
== END 2023-08-08 14:37 | disposition home or self-care (01) | DRG 661 ==
LOC: ANHED 20:12 → ANH3MEDSUR 20:52
PROVIDERS: Student in an Organized Health Care Education/Training Program; Urology; Admitting Provider Internal Medicine; Emergency Provider Physician Assistant; PCP Internal Medicine; Visit Provider Student in an Organized Health Care Education/Training Program
PROC: BT1D1ZZ Fluoroscopy of Right Kidney, Ureter and Bladder using Low Osmolar Contrast (ICD-10-PCS; CPT 52352; principal; 2023-08-07 14:30)
DX: N13.2 Hydronephrosis with renal and ureteral calculous obstruction (principal); N39.0 Urinary tract infection, site not specified; E78.5 Hyperlipidemia, unspecified; E66.9 Obesity, unspecified; F32.A Depression, unspecified; I11.0 Hypertensive heart disease with heart failure; I50.9 Heart failure, unspecified; Z68.36 Body mass index [BMI] 36.0-36.9, adult
CPT/HCPCS: 36415; 74176; 74420; 80053; 81001; 85025; 87086; 87088; 93005; 96365; 96375; 99285; A9270; C1758; C1769; C2617; G0378; J0696; J1100; J2270; J2405; J2704; J3010; J7030; J7120; Q9966

== ENCOUNTER 2023-08-14 18:24 | Observation (INO) | payer MEDICARE, SELFPAY ==
--- NOTE | ~2023-08-14 | CT_ITS ---
EXAMINATION: CT abdomen pelvis wo con DATE: 08/14/2023 21:05 INDICATION: right lower quadrant abdominal pain TECHNIQUE: Computed tomography (CT) of the abdomen and pelvis was performed without intravenous contr ast. Automated exposure control and iterative reconstruction technique were employed. The dose-length product was 1489.42 mGy-cm. COMPARISON: 08/07/2023. FINDINGS: Lower thorax: Aortic valve calcification. Dependent scar/atelectasis. Liver: Normal. Biliary/Gallbladder: Gallbladder is normal. No bile duct dilation. Pancreas: No mass or duct dilation. Spleen: Normal. Adrenals:No mass. Kidneys: Punctate nonobstructing left upper pole calculus. Right ureteral stent in good position. Mod erate perinephric stranding surrounding the right ureter. GI tract: No small or large bowel dilation. Appendix not visualized Diverticulosis without diverticul itis. Mesentery/Peritoneum: No ascites, mass, or free air. Retroperitoneum: No mass. Atherosclerotic abdominal aortic and/or arterial calcifications. Pelvis: Normal uterus and bilateral ovaries. Inflammatory stranding surrounding the urinary bladder. Soft Tissues: Small uncomplicated fat-containing left inguinal hernia. Bones: No acute osseous finding. IMPRESSION: Right ureteral and urinary bladder inflammatory changes, may reflect cystitis and ascending infection . Right ureteral stent, in good position. Appendix not visualized, presumably surgically absent. Reviewed, dictated and finalized at location K. [employer] INTERN IMPRESSION: Right ureteral and urinary bladder inflammatory changes, may reflect cystitis a nd ascending infection. Right ureteral stent, in good position. Appendix not visualized, presumably surgically absent.
--- NOTE | ~2023-08-14 | XR_ITS ---
EXAMINATION: XR retrograde pyelo w/stent RT DATE: 08/16/2023 13:08 INDICATION: Right internal ureteral stent placement TECHNIQUE: Fluoroscopic images from a right internal ureteral stent placement are submitted for elias hernandez 9 seconds of fluoroscopy of fluoroscopy time. FINDINGS: There is a right double-J internal ureteral stent projecting in expected position, with proximal [place] loop at the level of the renal pelvis and distal loop in the pelvis within the bladder lumen. IMPRESSION: 1. Right internal ureteral stent placement. Please refer to real-time procedural findings for brant aparicio. Reviewed, dictated and finalized at location A. MOTIVE OILER IMPRESSION: 1. Right internal ureteral stent placement. Please refer to real-time procedu ral findings for details.
[2023-08-14 18:25] VITALS: BP 156/75; PULSE 69; RESP 18; TEMP 36.1; O2SAT 96
--- NOTE | 2023-08-14 19:14 | ED.ABDPAIN ---
HPI - Abdominal Pain General Chief Complaint: Abdominal Pain Stated Complaint: kidney stone Time Seen by Provider: 08/14/23 19:06 History of Present Illness HPI narrative: This is a 73-year-old female, with history of hypertension and a 6 [place] right ureteral stent placement 7 days ago, who returns emergency department complaining of pain with urination. Patient states at baseline, she has 3/10 dull pain that reaches a tenderness specifically with urination. It is associated with hematuria. The patient denies fevers, though has some nausea. She states she was trying to manage pain at home but could no longer stand it. She has no other complaints at this time. Related Data Home Medications Medication Instructions Recorded Confirmed Wellbutrin SR 200 mg PO DAILY 08/06/23 08/15/23 carvedilol 6.25 mg tablet 6.25 mg PO BID 08/06/23 08/15/23 desvenlafaxine succinate 50 mg 50 mg PO DAILY 08/06/23 08/15/23 tablet,extended release 24 hr (Pristiq) lisinopril 5 mg tablet 10 mg PO BID 08/06/23 08/15/23 clotrimazole 1 % topical cream 1 applic topical DAILY 08/15/23 08/15/23 nystatin 100,000 unit/gram topical 1 applic topical DAILY PRN Rash 08/15/23 08/15/23 powder (Nyamyc) omeprazole 20 mg capsule,delayed 20 mg PO DAILY 08/15/23 08/15/23 release Allergies Allergy/AdvReac Type Severity Reaction Status Date / Time No Known Allergies Allergy Verified 08/06/23 16:25 Review of Systems Review of Systems: CONSTITUTIONAL: Denies fever, chills, or sweats. CARDIOVASCULAR: Denies chest pain, palpitations, or edema. RESPIRATORY: Denies cough or dyspnea. GASTROINTESTINAL: abdominal pain, nausea Denies vomiting, or diarrhea. GENITOURINARY: dysuria and hematuria SKIN: resolving abdominal rash Denies itching. MUSCULOSKELETAL: Denies back pain, joint pain, or myalgia. NEUROLOGIC: Denies headache, numbness, dizziness, or weakness. PSYCHIATRIC: Denies anxiety or depression. 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 She has 1 son at who was 50 years old. She is a lifelong nonsmoker and does not drink alcohol. She lives alone and does not have any patch. 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 Code status: Full code Surrogate decision maker: Son Smoking status: Never smoker Alcohol intake: never Substance use: never Lack of Transportation: No Lack of Food: Never True Current Housing: I Have Housing Concerned About Future Housing: No Difficulty Paying Gas/Electric Bills: No Difficulty Paying for Meds: No Currently Unemployed: No Education: Associate Degree Difficulty w/ Childcare or Family Care: No Spiritual care concerns: No Exam Narrative: GENERAL: Well-developed, well-nourished, in mild distress due to pain HEAD: Normocephalic, atraumatic. EYES: PERRLA and EOMI. CHEST: Clear to auscultation. No respiratory distress. No wheezes rales or rhonchi HEART: Regular rate and rhythm. No murmur heard. Normal peripheral pulses. ABDOMEN: Soft, tender to palpation, greater in the right and left lower quadrants, with rebound and some guarding, nondistended, normal active bowel sounds. right CVA tenderness to palpation, left CVA tendern EXTREMITIES: Normal range of motion. No edema. NEURO: Alert and oriented x
[2023-08-14 19:43] VITALS: BP 148/61; PULSE 65; RESP 15; O2SAT 98
[2023-08-14] MEDS: SODIUM CHLORIDE 0.9% IV 1,000 ML 999 ML IV CONT (19:44)
[2023-08-14] MEDS: ONDANSETRON INJ 4 MG/2 ML VIAL IV PUSH (19:44)
[2023-08-14 19:50] LABS: Basophils Percent Auto 0.3 % (0.2-1.2); Eosinophils Absolute Auto 0.3 K/mm3 (0-0.3); Eosinophils Percent Auto 2.9 % (0-4.4); Hematocrit 42.9 % (37.0-47.0); Hemoglobin 13.8 g/dL (12.0-15.0); Immature Granulocyte Absolute 0.04 K/mm3 (0.00-0.031); Immature Granulocyte Percent A 0.4 % (0-0.5); Lymphocytes Absolute Auto 2.44 K/mm3 (0.9-3.2); Lymphocytes Percent Auto 24.6 % (18.3-44.2); Mean Corpuscular HGB Conc 32.2 g/dl (32-36); Mean Corpuscular Hemoglobin 30.9 pg (26-34); Mean Corpuscular Volume 96.2 fl (80-100); Mean Platelet Volume 8.9 fl (7.4-10.4); Monocytes Absolute Auto 0.9 K/mm3 (0.1-0.6); Neutrophils Absolute Auto 6.2 K/mm3 (1.3-6.7); Neutrophils Percent Auto 62.8 % (45.5-73.1); Platelet Count Result 342 k/mm3 (150-375); Red Blood Count 4.46 M/mm3 (4.2-5.4); Red Cell Distribution Width 12.5 % (11.5-14.5); White Blood Count 9.9 K/mm3 (4.5-10.0)
[2023-08-14 20:10] LABS: Lipase 91 U/L (23-300)
[2023-08-14 20:11] LABS: Lactic Acid Reflex 1.6 mmol/L (0.7-2.0)
[2023-08-14 20:14] LABS: Alanine Aminotransferase 24 U/L (6-35); Albumin Level 4.3 g/dL (3.5-5.1); Alkaline Phosphatase 90 U/L (38-126); Anion Gap 3 mmol/L (8-16); Aspartate Amino Transferase 31 U/L (14-36); Bilirubin,Total 0.5 mg/dL (0.2-1.3); Blood Urea Nitrogen 17 mg/dL (7-17); Calcium 9.8 mg/dL (8.4-10.2); Carbon Dioxide 24 mmol/L (22-30); Chloride 106 mmol/L (98-107); Estimated CRCL calculation 79 ml/min; Estimated Glomerular Filt Rate > 60; Glucose 137 mg/dL (65-110); Lipase 92 U/L (23-300); Potassium 4.5 mmol/L (3.4-5.0); Sodium 133 mmol/L (137-145)
[2023-08-14 20:15] LABS: Bacteria Urine Rare /hpf; Need Manual Microscopic Reviewed; RBC Urine >100 /hpf (0-2); Squamous Epithelial Cell Urine None seen /hpf (Few); WBC Urine >100 /hpf
[2023-08-14 20:24] LABS: Appearance Urine Turbid (Clear); Bilirubin Urine 1+ (Negative); Blood Urine 3+ (Negative); Glucose Urine UA Negative (Negative); Ketones Urine Negative (Negative); Leukocyte Esterase Ur 2+ LEU/UL (Negative); Nitrate Urine Positive (Negative); Protein Urine 3+ mg/dL (Negative); Specific Grav Ur 1.027 (1.001-1.035); Urobilinogen Urine 0.2 mg/dL (<2.0)
[2023-08-14 20:25] LABS: Add Urine Microscopic? YES; Color Urine Brown (Yellow)
[2023-08-14 21:59] VITALS: BP 123/66; PULSE 73; RESP 15; O2SAT 97
--- NOTE | 2023-08-14 22:53 | PM.IMHP ---
H&P: HPI History of Present Illness Date/Time: 08/14/23 22:53 Chief Complaint: Right flank pain Narrative: This is a 73-year-old female with past medical history significant for congestive heart failure, depression, dyslipidemia, recurrent pancreatitis. Patient returns to the emergency room due to right flank pain she is status post retrograde pyelogram with insertion stent. However patient has noted worsening right lower quadrant pain and had episode of hematuria. Denies any fevers, rigors, chills, nausea, vomiting. Preliminary workup was significant for CT of abdomen and pelvis was reported as: EXAMINATION: CT abdomen pelvis wo con DATE: 08/14/2023 21:05 INDICATION: right lower quadrant abdominal pain TECHNIQUE: Computed tomography (CT) of the abdomen and pelvis was performed without intravenous contrast. Automated exposure control and iterative reconstruction technique were employed. The dose-length product was 1489.42 mGy-cm. COMPARISON: 08/07/2023. FINDINGS: Lower thorax: Aortic valve calcification. Dependent scar/atelectasis. Liver: Normal.? Biliary/Gallbladder: Gallbladder is normal. No bile duct dilation. Pancreas: No mass or duct dilation. Spleen: Normal. Adrenals:No mass. Kidneys: Punctate nonobstructing left upper pole calculus. Right ureteral stent in good position. Moderate perinephric stranding surrounding the right ureter. GI tract: No small or large bowel dilation. Appendix not visualized Diverticulosis without diverticulitis. Mesentery/Peritoneum: No ascites, mass, or free air. Retroperitoneum: No mass. Atherosclerotic abdominal aortic and/or arterial calcifications. Pelvis: Normal uterus and bilateral ovaries. Inflammatory stranding surrounding the urinary bladder. Soft Tissues: Small uncomplicated fat-containing left inguinal hernia. Bones:? No acute osseous finding. IMPRESSION: Right ureteral and urinary bladder inflammatory changes, may reflect cystitis and ascending infection. Right ureteral stent, in good position. Appendix not visualized, presumably surgically absent. Review of Systems Review of Systems: Worsening right flank pain, hematuria Constitutional: Constitutional: Denies chills, Denies fever(s) and Denies malaise Eyes: Eyes: Denies change in vision ENT: Denies dysphagia and Denies odynophagia Cardiovascular: Cardiovascular: Denies chest pain, Denies radiating jaw, neck or arm pain and Denies palpitations Respiratory: Respiratory: Denies cough, Denies excessive phlegm production and Denies dyspnea Gastrointestinal: Gastrointestinal: Denies abdominal pain, Denies dyspepsia, Denies heartburn, Denies diarrhea, Denies nausea and Denies vomiting Genitourinary: Genitourinary: Reports flank pain (Right-sided) Musculoskeletal: Musculoskeletal: Denies back pain Integumentary/Breasts: Skin/Breast: Denies rash Neurologic: Denies focal weakness and Denies Sensory deficit (Neuro) Psychiatric: Psychiatric: Reports no additional psychiatric complaints and Reports as per HPI Endocrine: Endocrine: Denies cold intolerance, Denies flushing, Denies heat intolerance, Denies polyphagia, Denies polydipsia and Denies palpitations Hematologic/Lymphatic: Hematologic/Lymphatic: Reports no additional hematologic/lymphatic complaints and Reports as per HPI Allergic/Immunologic: Allergic/Immunologic: Reports no additional allergic/immunologic complaints and Reports as per HPI PMFSH Past Medical History Medical History CHF (congestive heart failure) 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
[2023-08-15] VITALS (8 sets, daily range): BP systolic 119–148; BP diastolic 52–69; PULSE 57–68; RESP 15–18; TEMP 36.4; O2SAT 95–100; BMI 36.7
--- NOTE | 2023-08-15 00:45 | ADMGEN ---
This patient, Sheyla Galo, was admitted to 2 Medical Room 242-. Patient/family oriented to hospital policies and general routines including ID bracelet, bed and alarms, visiting hours, pain management, procedures, bathroom and other care routines, personal items, smoking policy, room service/diet, and visiting hours. Information on how to activate the Rapid Response Team has been discussed. Patient/Family are encouraged to report perceived risks to care and to ask questions if they do not understand what they are told or what they should do.
[2023-08-15] MEDS: SODIUM CHLORIDE 0.9% IV 1,000 ML 125 ML IV CONT ×2 (01:14→08:27)
[2023-08-15 05:30] LABS: Basophils Percent Auto 0.3 % (0.2-1.2); Eosinophils Absolute Auto 0.2 K/mm3 (0-0.3); Hematocrit 39.9 % (37.0-47.0); Hemoglobin 12.4 g/dL (12.0-15.0); Immature Granulocyte Absolute 0.03 K/mm3 (0.00-0.031); Immature Granulocyte Percent A 0.4 % (0-0.5); Lymphocytes Absolute Auto 2.55 K/mm3 (0.9-3.2); Mean Corpuscular HGB Conc 31.1 g/dl (32-36); Mean Corpuscular Hemoglobin 30.3 pg (26-34); Mean Corpuscular Volume 97.6 fl (80-100); Mean Platelet Volume 9.4 fl (7.4-10.4); Monocytes Absolute Auto 0.8 K/mm3 (0.1-0.6); Monocytes Percent Auto 11.4 % (2.6-8.5); Neutrophils Absolute Auto 3.5 K/mm3 (1.3-6.7); Neutrophils Percent Auto 48.9 % (45.5-73.1); Platelet Count Result 269 k/mm3 (150-375); Red Blood Count 4.09 M/mm3 (4.2-5.4); Red Cell Distribution Width 12.7 % (11.5-14.5); White Blood Count 7.1 K/mm3 (4.5-10.0)
[2023-08-15 05:38] LABS: Anion Gap 5 mmol/L (8-16); Blood Urea Nitrogen 13 mg/dL (7-17); Calcium 9.1 mg/dL (8.4-10.2); Carbon Dioxide 24 mmol/L (22-30); Chloride 109 mmol/L (98-107); Estimated CRCL calculation 80 ml/min; Estimated Glomerular Filt Rate > 60; Glucose 109 mg/dL (65-110); Potassium 4.2 mmol/L (3.4-5.0); Sodium 138 mmol/L (137-145)
--- NOTE | 2023-08-15 07:42 | WPDURCON ---
Assessment and Plan Assessment and plan (1) Calculus of proximal right ureter: Code(s): N20.1 - Calculus of ureter Status: Acute Assessment and Plan: She has a stent in place. She is awaiting outpatient intervention for definitive stone management. Since she is here in the hospital I will try to arrange for this tomorrow afternoon. She is on broad-spectrum antibiotics. She can continue on this awaiting urine culture. Discussed ureteroscopy, stone extraction. Understands stone may have already passed. If there is minimal manipulation of the ureter the stent can likely be left out (2) Abnormal urinalysis: Code(s): R82.90 - Unspecified abnormal findings in urine Status: Acute Assessment and Plan: Infection versus stent reaction. Doubt pyelonephritis given normal white count and lack of flank pain Urology Consult Note HPI Date Seen: 08/15/23 Requesting Physician: Analia Lord MD Primary Care Provider: Yvan Arredondo, Consult Narrative Narrative: Sheyla Galo is a 73 year old female history of stone disease. Last weekend she underwent a right ureteral stent placement for a distal ureteral stone and symptoms and signs which were concerning for infection. Urine cultures ultimately negative. She was sent home last Tuesday. She returned to the ER last night with flank pain and blood in the urine. She denied any fevers or chills. She was admitted for further evaluation. This is likely secondary to stent pain. CT scan was done. Stent is in good position. I do not clearly see the distal stone any longer. Her urinalysis is abnormal. This could be secondary to infection or it could just be a reaction to the stent. 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 She has 1 son at who was 50 years old. She is a lifelong nonsmoker and does not drink alcohol. She lives alone and does not have any patch. 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 code Surrogate decision maker: Son Smoking status: Never smoker Alcohol intake: never Substance use: never Lack of Transportation: No Lack of Food: Never True Current Housing: I Have Housing Concerned About Future Housing: No Difficulty Paying Gas/Electric Bills: No Difficulty Paying for Meds: No Currently Unemployed: No Education: Associate Degree Difficulty w/ Childcare or Family Care: No Spiritual care concerns: No Meds Home Medications and Allergies Home Medications Medication Instructions Recorded Confirmed Type Wellbutrin SR 200 mg PO DAILY 08/06/23 08/15/23 History carvedilol 6.25 mg tablet 6.25 mg PO BID 08/06/23 08/15/23 History desvenlafaxine succinate 50 mg 50 mg PO DAILY 08/06/23 08/15/23 History tablet,extended release 24 hr (Pristiq) lisinopril 5 mg tablet 10 mg PO BID 08/06/23 08/15/23 History clotrimazole 1 % topical cream 1 applic topical DAILY 08/15/23 08/15/23 History nystatin 100,000 unit/gram topical 1 applic topical DAILY PRN Rash 08/15/23 08/15/23 History powder (Nyamyc) omeprazole 20 mg capsule,
[2023-08-15] MEDS: lisinopriL 10 MG TABLET PO ×2 (08:28→20:23)
[2023-08-15] MEDS: carvediloL 6.25 MG TABLET PO ×2 (08:28→16:25)
[2023-08-15] MEDS: DESVENLAFAXINE SUCCINATE 50 MG TAB.ER.24H PO (08:28)
[2023-08-15] MEDS: PANTOPRAZOLE 40 MG TABLET PO (08:28)
--- NOTE | 2023-08-15 10:41 | PM.IMPN ---
Progress Note: A&P Assessment and Plan (1) Flank pain: Code(s): R10.9 - Unspecified abdominal pain Status: Acute Assessment and Plan: Patient presented to the hospital with acute right-sided flank pain. CT of the abdomen pelvis showing cystitis with ascending infection and right ureteral stent in position. Urology consulted Pain likely due to pyelonephritis. Pain management Supportive care (2) Pyelonephritis: Code(s): N12 - Tubulo-interstitial nephritis, not specified as acute or chronic Status: Acute Assessment and Plan: Patient presented to the hospital with acute right-sided flank pain. CT of the abdomen pelvis showing cystitis with ascending infection and right ureteral stent in position. Urology consulted Urine culture pending. Rocephin started. Adjust antibiotics to culture results. Monitor daily labs. (3) Obesity (BMI 30-39.9): Code(s): E66.9 - Obesity, unspecified Status: Acute Assessment and Plan: Lifestyle and diet modifications (4) CHF (congestive heart failure): Qualifiers: Heart failure type: unspecified Heart failure chronicity: chronic Qualified Code(s): I50.9 - Heart failure, unspecified Code(s): I50.9 - Heart failure, unspecified Status: Chronic Assessment and Plan: Patient appears euvolemic (5) Calculus of distal right ureter: Code(s): N20.1 - Calculus of ureter Status: Acute Assessment and Plan: Patient had stent placed on 08/07/2023. Subjective Date/time seen: 08/15/23 10:41 Interval history: Patient recently had right ureter stent placed. When she was at home she was having pain with urination as well as urinary frequency. She also experienced hematuria. Patient had been given [place] at discharge and she stated that the [place] was not helping her pain. Patient states that her abdominal pain as well as dysuria has improved since being here in the hospital and starting antibiotics. Discussed with her the course as far as waiting for urine cultures to return prior to transitioning her to p.o. antibiotics. Urology is consulted on the case as well. Exam Narrative: GENERAL: Comfortable, no acute distress , obese HENMT: moist mucous membranes EYES: EOM intact b/l NECK: no lymphadenopathy RESPIRATORY: clear to auscultation CARDIO: RRR GI: soft, nontender, bowel sounds present, no CVA tenderness SKIN: no rashes EXTREMITIES: no edema, redness or tenderness Objective Data Vital Signs Vital Signs: Vital Signs - 24 hr 08/14/23 18:25 08/14/23 19:43 08/14/23 21:59 Temperature 97.0 F L Pulse Rate 69 65 73 Respiratory Rate 18 15 15 Blood Pressure 156/75 H 148/61 H 123/66 Pulse Oximetry 96 98 97 Oxygen Delivery Room Air 08/15/23 00:02 08/15/23 00:24 08/15/23 00:53 Temperature Pulse Rate 61 66 Respiratory Rate 15 15 Blood Pressure 129/59 L 126/69 Pulse Oximetry 100 100 Oxygen Delivery Room Air 08/15/23 00:49 08/15/23 08:28 08/15/23 08:00 Temperature 97.6 F Pulse Rate 62 68 Respiratory Rate 16 Blood Pressure 119/63 Pulse Oximetry 98 Oxygen Delivery Room Air Intake/Output Intake/Output: Intake & Output 08/12/23 08/13/23 08/14/23 08/15/23 23:59 23:59 23:59 23:59 Intake Total 1000 1290 Output Total 400 Balance 1000 890 Meds/Results Medications: Active Medications Generic Name Dose Route Start Last Admin Trade Name Freq PRN Reason Stop Dose Admin Carvedilol 6.25 mg 08/15/23 08:00 08/15/23 08:28 Carvedilol 6.25 Mg Tablet PO 6.25 mg BIDWM LINDA Administration Desvenlafaxine Succinate 50 mg 08/15/23 09:00 08/15/23 08:28 Desvenlafaxine Succinate 50 Mg Tab.Er.24h PO 50 mg QAM LINDA Administration Sodium Chloride 1,000 mls @ 125 mls/hr 08/14/23 22:55 08/15/23 08:27 Normal Saline Iv IV CONT 125 mls/hr .Q8H LINDA Administration Ceftriaxone Sodium 1 gm in 50 ml
[2023-08-15] MEDS: ACETAMINOPHEN 325 MG TABLET 650 MG PO (17:02)
[2023-08-15] MEDS: MELATONIN 5 MG TABLET PO (23:06)
[2023-08-16 06:00] VITALS: BP 142/62; PULSE 60; RESP 16; TEMP 36.5; O2SAT 93
[2023-08-16 06:27] LABS: Basophils Percent Auto 0.4 % (0.2-1.2); Eosinophils Absolute Auto 0.2 K/mm3 (0-0.3); Hematocrit 38.8 % (37.0-47.0); Hemoglobin 12.3 g/dL (12.0-15.0); Immature Granulocyte Absolute 0.02 K/mm3 (0.00-0.031); Immature Granulocyte Percent A 0.4 % (0-0.5); Lymphocytes Absolute Auto 2.06 K/mm3 (0.9-3.2); Lymphocytes Percent Auto 38.4 % (18.3-44.2); Mean Corpuscular HGB Conc 31.7 g/dl (32-36); Mean Corpuscular Hemoglobin 30.6 pg (26-34); Mean Corpuscular Volume 96.5 fl (80-100); Mean Platelet Volume 9.6 fl (7.4-10.4); Monocytes Absolute Auto 0.5 K/mm3 (0.1-0.6); Monocytes Percent Auto 9.5 % (2.6-8.5); Neutrophils Absolute Auto 2.6 K/mm3 (1.3-6.7); Neutrophils Percent Auto 48.3 % (45.5-73.1); Platelet Count Result 267 k/mm3 (150-375); Red Blood Count 4.02 M/mm3 (4.2-5.4); Red Cell Distribution Width 12.3 % (11.5-14.5); White Blood Count 5.4 K/mm3 (4.5-10.0)
[2023-08-16 06:44] LABS: Alanine Aminotransferase 19 U/L (6-35); Albumin Level 3.5 g/dL (3.5-5.1); Alkaline Phosphatase 87 U/L (38-126); Anion Gap 6 mmol/L (8-16); Aspartate Amino Transferase 23 U/L (14-36); Bilirubin,Total 0.4 mg/dL (0.2-1.3); Blood Urea Nitrogen 9 mg/dL (7-17); Calcium 8.9 mg/dL (8.4-10.2); Carbon Dioxide 25 mmol/L (22-30); Chloride 108 mmol/L (98-107); Estimated CRCL calculation 80 ml/min; Estimated Glomerular Filt Rate > 60; Glucose 105 mg/dL (65-110); Sodium 139 mmol/L (137-145)
[2023-08-16 09:26] VITALS: BP 149/44; PULSE 54; O2SAT 97
[2023-08-16] MEDS: buPROPion HCL SR (12HR) 100 MG TABCR 200 MG PO (09:36)
[2023-08-16] MEDS: PANTOPRAZOLE 40 MG TABLET PO (09:36)
[2023-08-16] MEDS: DESVENLAFAXINE SUCCINATE 50 MG TAB.ER.24H PO (09:36)
[2023-08-16] MEDS: LACTATED RINGERS 1,000 ML 30 ML IV CONT (12:00)
--- NOTE | 2023-08-16 12:19 | WPDHPUPDATE1 ---
History and Physical Update Update Date/Time: 08/16/23 12:19 History and Physical has been reviewed, including an updated exam of the patient. There are NO changes in the patient's condition. Risks, benefits, and alternatives have been discussed and questions answered. Patient agrees to proceed with procedure. Proceed with cystoscopy, right retrograde pyelogram, right ureteroscopy with stone extraction, possible right stent exchange
--- NOTE | 2023-08-16 12:34 | WPDANESEPPF ---
Anes - Initial Pre Proc Eval Procedure: Operation Date: 08/16/23 12:30 Proposed Procedures p Cystoscopy, Right Ureteroscopy, Right Stone Extraction, Right Stent Removal - Dex Isabel MD Date/Time: 08/16/23 12:34 Surgeon: Analia Lord MD Pre Op Diagnosis: Pyelonephritis Patient Data Age: 73 Gender: F Height: 1.73 m Weight: 109.5 kg Last Vital Signs Temp 36.5 C 08/16/23 06:00 Pulse 54 L 08/16/23 09:26 Resp 16 08/16/23 06:00 BP 149/44 H 08/16/23 09:26 Pulse Ox 97 08/16/23 09:26 O2 Del Method Room Air 08/16/23 09:30 Allergies Allergy/AdvReac Type Severity Reaction Status Date / Time No Known Allergies Allergy Verified 08/06/23 16:25 Home Medications Medication Instructions Recorded Confirmed Type Wellbutrin SR 200 mg PO DAILY 08/06/23 08/15/23 History carvedilol 6.25 mg tablet 6.25 mg PO BID 08/06/23 08/15/23 History desvenlafaxine succinate 50 mg 50 mg PO DAILY 08/06/23 08/15/23 History tablet,extended release 24 hr (Pristiq) lisinopril 5 mg tablet 10 mg PO BID 08/06/23 08/15/23 History clotrimazole 1 % topical cream 1 applic topical DAILY 08/15/23 08/15/23 History nystatin 100,000 unit/gram topical 1 applic topical DAILY PRN Rash 08/15/23 08/15/23 History powder (Nyamyc) omeprazole 20 mg capsule,delayed 20 mg PO DAILY 08/15/23 08/15/23 History release Laboratory Tests 08/16/23 05:43 WBC 5.4 K/mm3 (4.5-10.0) RBC 4.02 L M/mm3 (4.2-5.4) Hgb 12.3 g/dL (12.0-15.0) Hct 38.8 % (37.0-47.0) MCV 96.5 fl (80-100) MCH 30.6 pg (26-34) MCHC 31.7 L g/dl (32-36) RDW 12.3 % (11.5-14.5) Plt Count 267 k/mm3 (150-375) MPV 9.6 fl (7.4-10.4) Immature Gran % (Auto) 0.4 % (0-0.5) Neut % (Auto) 48.3 % (45.5-73.1) Lymph % (Auto) 38.4 % (18.3-44.2) [place] % (Auto) 9.5 H % (2.6-8.5) Eos % (Auto) 3.0 % (0-4.4) Baso % (Auto) 0.4 % (0.2-1.2) Lymph # (Auto) 2.06 K/mm3 (0.9-3.2) [place] # (Auto) 0.5 K/mm3 (0.1-0.6) Eos # (Auto) 0.2 K/mm3 (0-0.3) Baso # (Auto) 0.0 K/mm3 (0.0-0.1) Abs Immat Gran (auto) 0.02 K/mm3 (0.00-0.031) Absolute Neuts (auto) 2.6 K/mm3 (1.3-6.7) Absolute Nucleated RBC 0.0 K/mm3 (0.0-0.012) Nucleated RBC % 0.0 % (0.0-0.2) Sodium 139 mmol/L (137-145) Potassium 4.0 mmol/L (3.4-5.0) Chloride 108 H mmol/L (98-107) Carbon Dioxide 25 mmol/L (22-30) Anion Gap 6 L mmol/L (8-16) BUN 9 mg/dL (7-17) Creatinine 0.70 mg/dL (0.7-1.0) Estim Creat Clear Calc 80 ml/min Estimated GFR > 60 (59 - ) Glucose 105 mg/dL (65-110) Calcium 8.9 mg/dL (8.4-10.2) Total Bilirubin 0.4 mg/dL (0.2-1.3) AST 23 U/L (14-36) ALT 19 U/L (6-35) Alkaline Phosphatase 87 U/L (38-126) Total Protein 6.0 L g/dL (6.3-8.2) Albumin 3.5 g/dL (3.5-5.1) Patient hx anesthesia problems: none Family hx anesthesia problems: none Results Review: All pre-operative results and documents have been reviewed as part of the pre-operative evaluation. 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 She has 1 son at who was 50 years old. She is a lifelong nonsmoker and does not drink alcohol. She lives alone and [place]
--- NOTE | 2023-08-16 13:10 | W.PM.PROC2 ---
Procedure Note - Detailed Date of Procedure 08/16/23 Pre-op Diagnosis Distal right ureteral calculus Post-op Diagnosis Same Procedure Performed Cystoscopy, right retrograde pyelogram, right ureteroscopy with stone extraction, right ureteral stent exchange 4.8 Haitian contour Surgeon Dex Isabel MD Anesthesia General Description of Procedure Patient is taken the operative suite correctly identified. Once anesthesia was obtained she was placed in dorsal lithotomy position prepped and draped usual sterile fashion. Twenty-two Haitian scope inserted the bladder. The prior stent was grasped brought out the meatus. Sensor wire was passed through the stent. Rigid ureteral scope was inserted into the distal ureter. The stone was visualized somewhat impacted in the sidewall. Using an escape basket was able to retrieve this removed in its entirety and sent for analysis. Reinspection revealed no residual stones. Pyelogram was then performed to confirm placement of the stent. 4.8 Haitian contour stent was then placed with the proximal end coiled in the renal pelvis the distal in the bladder. I left the string attached so that it can be removed on Tuesday this week. Patient will then follow up in approximately 1 month's time for renal ultrasound. This completes dictation on this patient. Please send a copy of this op note to my office. Estimated Blood Loss 0 Urine Output 700 Drains Yes Packing No Pathology Yes Complications No immediate complications Condition Stable Disposition PACU
[2023-08-16 13:14] VITALS: BP 167/96; PULSE 68; RESP 13; TEMP 36.2; O2SAT 99
[2023-08-16 13:27] VITALS: BP 141/93; PULSE 69; RESP 14; O2SAT 95
[2023-08-16 13:40] VITALS: BP 147/79; PULSE 67; RESP 20; O2SAT 96
[2023-08-16 14:00] VITALS: BP 149/62; PULSE 59; RESP 16; TEMP 36.6; O2SAT 97
--- NOTE | 2023-08-16 14:44 | PM.DS ---
DS: Admitting Diagnosis Discharge Date 08/16/23 Admitting Diagnosis UTI, right ureteral stone DS: Discharge Diagnosis Discharge Diagnosis (1) Flank pain: Code(s): R10.9 - Unspecified abdominal pain Status: Acute (2) Pyelonephritis: Code(s): N12 - Tubulo-interstitial nephritis, not specified as acute or chronic Status: Acute (3) Obesity (BMI 30-39.9): Code(s): E66.9 - Obesity, unspecified Status: Acute (4) CHF (congestive heart failure): Qualifiers: Heart failure type: unspecified Heart failure chronicity: chronic Qualified Code(s): I50.9 - Heart failure, unspecified Code(s): I50.9 - Heart failure, unspecified Status: Chronic (5) Calculus of distal right ureter: Code(s): N20.1 - Calculus of ureter Status: Acute DS: Summary Hospital Course Hospital Course: This is a 73-year-old female with past medical history of congestive heart failure, depression, dyslipidemia, recurrent pancreatitis and depression that presented to the ED on 08/14/2023 due to right-sided flank pain post retrograde pyelogram with stent insertion. At home patient had worsening right lower quadrant pain and right flank pain as well as hematuria. She denied fever, chills, nausea vomiting. CT abdomen and pelvis revealing right ureteral and urinary bladder inflammatory changes may reflecting Cystitis and ascending infection. UA appeared infected and patient was started on Rocephin. urine culture came back as no growth although due to patient's urinary symptoms she will be treated for 7 days. Urology was consulted and decided to do cystoscopy, right retrograde pyelogram, right ureteroscopy with stone extraction and ureteral stent exchange on 08/16/2023. After procedure patient did well and tolerated her diet. Symptoms such as flank pain and dysuria improved. Patient no longer having any hematuria although she does have some pressure post void which is to be expected after stent insertion. Is advised that she either personally take stent out on Tuesday08/19/2023 or return to the office this stay or early the following week to have stent removed. Follow-up with Urology again in 1 month. Her labs and vital signs are stable and she is medically clear for discharge at this time Time Spent with Patient Time attestation: Total time spent providing and/or coordinating discharge services: Exam Narrative: GENERAL: Comfortable, no acute distress , obese HENMT: moist mucous membranes EYES: EOM intact b/l NECK: no lymphadenopathy RESPIRATORY: clear to auscultation CARDIO: RRR GI: soft, nontender, bowel sounds present, no CVA tenderness SKIN: no rashes EXTREMITIES: no edema, redness or tenderness DS: Data Data Completed and Pending Completed studies during hospitalization: Pending at discharge 08/16/23 13:02 Surgical [PTH] Routine Labs on day of discharge: Labs from last 24 hours 08/16/23 05:43 WBC 5.4 RBC 4.02 L Hgb 12.3 Hct 38.8 MCV 96.5 MCH 30.6 MCHC 31.7 L RDW 12.3 Plt Count 267 MPV 9.6 Immature Gran % (Auto) 0.4 Neut % (Auto) 48.3 Lymph % (Auto) 38.4 [place] % (Auto) 9.5 H Eos % (Auto) 3.0 Baso % (Auto) 0.4 Lymph # (Auto) 2.06 [place] # (Auto) 0.5 Eos # (Auto) 0.2 Baso # (Auto) 0.0 Abs Immat Gran (auto) 0.02 Absolute Neuts (auto) 2.6 Absolute Nucleated RBC 0.0 Nucleated RBC % 0.0 Sodium 139 Potassium 4.0 Chloride 108 H Carbon Dioxide 25 Anion Gap 6 L BUN 9 Creatinine 0.70 Estim Creat Clear Calc 80 Estimated GFR > 60 Glucose 105 Calcium 8.9 Total Bilirubin 0.4 AST 23 ALT 19 Alkaline Phosphatase 87 Total Protein 6.0 L Albumin 3.5 Discharge Plan Discharge Attending physician on discharge: Tho Marks Consulting providers: Paul Panchal Discharging Clinician: Namrata Salomon Patient Disposition: Home, Self-Care Activity: as tolerated Diet: heart healthy Discharge Instru
[2023-08-16] MEDS: CEFDINIR 300 MG CAPSULE PO (15:31)
--- NOTE | 2023-08-17 14:43 | WPDANESPN ---
Anes - Prog Note Post-Op Date/Time: 08/17/23 14:43 Cardiovascular status: normal Respiratory status: normal Airway patency: baseline Mental status: baseline Post-Op hydration status: normal Vital Signs: Last Vital Signs Temp 36.6 C 08/16/23 14:00 Pulse 59 L 08/16/23 14:00 Resp 16 08/16/23 14:00 BP 149/62 H 08/16/23 14:00 Pulse Ox 97 08/16/23 14:00 O2 Del Method Room Air 08/16/23 13:40 O2 Flow Rate 6 08/16/23 13:14 Pain Score (VAS): 0 Laboratory Tests 08/16/23 05:43 08/16/23 05:43 Post-procedural complaints: none Patient Feedback: Patient satisfied with anesthetic care.
== END 2023-08-16 16:10 | disposition home or self-care (01) ==
LOC: ANHED 22:58 → ANH2MED 08-15 07:50
PROVIDERS: Internal Medicine Critical Care Medicine; Urology; Admitting Provider Internal Medicine; Emergency Provider Preventive Medicine Aerospace Medicine; PCP Internal Medicine; Visit Provider Family Medicine
PROC: (CPT 52352; principal; 2023-08-16 12:30)
DX: N12 Tubulo-interstitial nephritis, not specified as acute or chronic (principal); N20.1 Calculus of ureter; Z96.0 Presence of urogenital implants; I11.0 Hypertensive heart disease with heart failure; I50.9 Heart failure, unspecified; F32.A Depression, unspecified; E66.9 Obesity, unspecified; E78.5 Hyperlipidemia, unspecified; E87.1 Hypo-osmolality and hyponatremia; R82.90 Unspecified abnormal findings in urine; Z79.52 Long term (current) use of systemic steroids; Z79.899 Other long term (current) drug therapy
CPT/HCPCS: 52332; 52352; 36415; 74176; 74420; 80048; 80053; 81001; 82365; 83605; 83690; 85025; 87086; 87088; 88300; 96361; 96365; 96375; 99285; A9270; C1758; C1769; C2617; G0378; J0696; J1100; J2405; J2704; J3010; J7030; J7120; Q9966